=== PATIENT | male | born 1940 | race Two or more races ===

== ENCOUNTER 2017-02-10 16:16 | Emergency (ER) | payer MEDICAID, MEDICARE, OTHER ==
[~2017-02-10] VITALS: Ht 175.3 cm; Wt 56.2 kg
[~2017-02-10 16:16] MED LIST: ASPIRIN PO; ATOR40TA PO; DIVA250T4 PO; DONE5TAB3 PO; DUTA0.5C PO; MEMA10TA PO; METF850T2 PO; OXYB15TA3 PO; SITA100T PO; TRAZ-144 PO
[2017-02-10] MEDS ORDERED: ENAL10TA PO (16:50)
[2017-02-10] MEDS ORDERED: TAMS0.4C34 PO (16:57)
--- NOTE | 2017-02-10 17:25 | NUR ---
Pt resting with NAD noted, daughter at bedside.
--- NOTE | 2017-02-10 17:26 | NUR ---
Blood draw still pending.
--- NOTE | 2017-02-10 17:39 | NUR ---
Blood drawn by lab.
[2017-02-10 17:47] LABS: BASOPHILS % (AUTO) 0.3 % (0.0-2.0); EOSINOPHILS # (AUTO) 1.8 K/uL (0.0-0.7); EOSINOPHILS % (AUTO) 11.5 % (0.0-7.0); HEMATOCRIT 35.8 % (40-50); LYMPHOCYTES # (AUTO) 1.4 K/UL (0.8-4.8); LYMPHOCYTES % (AUTO) 8.8 % (20.5-51.5); MEAN CORPUSCULAR HEMOGLOBIN 31.7 UUG (27.0-31.0); MEAN CORPUSCULAR HGB CONC 34 g/dL (32.0-37.0); MEAN CORPUSCULAR VOLUME 94.2 FL (82.0-92.0); MONOCYTES # (AUTO) 0.9 K/UL (0.1-1.30); MONOCYTES % (AUTO) 5.9 % (0.0-11.0); NEUTROPHILS # (AUTO) 11.7 K/UL (1.8-8.9); NEUTROPHILS % (AUTO) 73.5 % (38.5-71.5); PLATELET COUNT (AUTO) 224 K/UL (150-450); RED CELL DISTRIBUTION WIDTH 14.5 % (11.5-14.5); WHITE BLOOD COUNT (AUTO) 15.8 K/UL (4.0-11.2)
[2017-02-10 17:54] LABS: CALCIUM 9.6 mg/dL (8.5-10.1); CARBON DIOXIDE 30 mmol/L (21-32); CHLORIDE 110 mmol/L (98-107); CREATININE 0.9 mg/dL (0.6-1.3); GLUCOSE 97 mg/dL (74-106); POTASSIUM 3.7 mmol/L (3.5-5.1); SODIUM SERUM 149 mmol/L (136-145); UREA NITROGEN, BLOOD 23 mg/dL (7-18)
[2017-02-10 17:56] LABS: *BLOOD, URINE NEGATIVE (NEGATIVE); *CLARITY,URINE CLEAR (CLEAR); *COLOR,URINE YELLOW (YELLOW); *KETONES,URINE 1+ (NEGATIVE); *PROTEIN,URINE TRACE (NEGATIVE); LEUKOCYTE ESTERASE ,URINE NEGATIVE (NEGATIVE); NITRITE, URINE NEGATIVE (NEGATIVE); UGLUCOSE NEGATIVE (NEGATIVE)
[2017-02-10 17:57] LABS: *BILIRUBIN,URIN 1+ (NEGATIVE)
[2017-02-10 17:59] LABS: ALANINE AMINOTRANSFERASE 24 U/L (16-63); ALBUMIN 3.2 g/dL (3.4-5.0); ALKALINE PHOSPHATASE 140 U/L (50-136); ASPARTATE AMINOTRANSFERASE 16 U/L (15-37); BILIRUBIN,DIRECT 0.1 mg/dL (0.0-0.2); BILIRUBIN,TOTAL 0.2 mg/dL (0.2-1.0); TOTAL PROTEIN, SERUM 6.4 g/dL (6.4-8.2)
[2017-02-10 18:00] LABS: ETHANOL < 3 MG/DL (0-0)
[2017-02-10 18:03] LABS: BACTERIA,URINE NONE SEEN /HPF (NONE SEEN); CALCIUM OXALATE CRYSTALS,UR MODERATE /HPF (NONE SEEN); SQUAMOUS EPITHELIAL CELL,UR FEW /HPF (NONE SEEN)
[2017-02-10 18:05] LABS: *AMPHETAMINE, URINE NEGATIVE (NEGATIVE); *BARBITURATE, URINE NEGATIVE (NEGATIVE); *CANNABINOID, URINE NEGATIVE (NEGATIVE); *COCCAINE, URINE NEGATIVE (NEGATIVE); *OPIATE, URINE NEGATIVE (NEGATIVE); *PHENCYCLIDINE SCREEN,URINE NEGATIVE (NEGATIVE)
[2017-02-10 18:07] LABS: THYROID STIMULATING HORMONE 0.684 mIU/mL (0.358-3.740)
--- NOTE | 2017-02-10 18:47 | NUR ---
Pt is resting in gurney and watching tv, per Dr Fournier pt is medically clear, left msg for Gustabo Ordoñez for psych eval.
--- NOTE | 2017-02-10 19:09 | NUR ---
Spoke with Gustabo Ordoñez, he will evaluate pateint, FAMILIA 30 min.
--- NOTE | 2017-02-10 20:24 | NUR ---
Gustabo Ordoñez here to eval Patient
--- NOTE | 2017-02-10 21:25 | NUR ---
randy does not meet criteria per Gustabo Ordoñez
--- NOTE | 2017-02-10 21:36 | NUR ---
Patient discharged to home in stable conditon with daughter taking patient home. Written and verbal after care instructions given. Patient/Daughter verbalizes understanding of instructions. Walked out of ER with steady gair
[2017-02-10 21:37] VITALS: BP 128/78
== END 2017-02-10 21:37 | disposition home or self-care (01) ==
LOC: ER 16:16
DX: F03.90 Unspecified dementia, unspecified severity, without behavioral disturbance, psychotic disturbance, mood disturbance, and anxiety (principal); I10 Essential (primary) hypertension; E11.9 Type 2 diabetes mellitus without complications; E78.5 Hyperlipidemia, unspecified; Z79.82 Long term (current) use of aspirin
CPT/HCPCS: 36415; 71010; 80307; 83605; 84443; 85025; 85730; 93005; A4663; G6040-TC

== ENCOUNTER 2018-09-06 17:59 | Emergency (ER) | payer MEDICARE, MEDICAID ==
[~2018-09-06] VITALS: Ht 175.3 cm; Wt 59.0 kg
[~2018-09-06 17:59] MED LIST changes: -DONE5TAB3 PO; +DONE5TAB7 PO; +ENAL10TA PO; +METF-441 PO; -METF850T2 PO; +TAMS0.4C34 PO; -TRAZ-144 PO; +TRAZ-182 PO
[2018-09-06] MEDS ORDERED: TDAP DIPH,PERTUSS,TET VAC/PF 0.5 ML DISP.SYRIN IM ONE ×2 (18:30→18:41)
[2018-09-06] MEDS ORDERED: LORA0.5T PO (18:41)
[2018-09-06] MEDS ORDERED: MIRA50TA PO (18:41)
[2018-09-06] MEDS ORDERED: FINA5TAB11 PO (18:41)
[2018-09-06] MEDS ORDERED: QUET25TA PO (18:41)
--- NOTE | 2018-09-06 18:47 | NUR ---
PATIENT WAS SEEN BY MD. DIAGNOSTIC TESTS IN PROCESS... PATIENT IS AWAKE AND ALERT IN NO DISTRESS.
[2018-09-06 19:03] LABS: BASOPHILS % (AUTO) 0.6 % (0.0-2.0); EOSINOPHILS # (AUTO) 0.8 K/uL (0.0-0.7); EOSINOPHILS % (AUTO) 10.6 % (0.0-7.0); HEMOGLOBIN 9.7 g/dL (12.5-16.3); LYMPHOCYTES # (AUTO) 1.5 K/uL (20.0-40.0); LYMPHOCYTES % (AUTO) 19.9 % (20.5-51.5); MEAN CORPUSCULAR HEMOGLOBIN 32.3 uug (23.8-33.4); MEAN CORPUSCULAR HGB CONC 35 g/dL (32.5-36.3); MEAN CORPUSCULAR VOLUME 92.8 fL (73.0-96.2); MONOCYTES # (AUTO) 0.6 K/uL (2.0-10.0); MONOCYTES % (AUTO) 7.3 % (0.0-11.0); NEUTROPHILS # (AUTO) 4.8 K/uL (1.8-8.9); NEUTROPHILS % (AUTO) 61.6 % (38.5-71.5); PLATELET COUNT (AUTO) 169 K/uL (152-348); RED BLOOD CELL COUNT(AUTO) 3.01 MIL/uL (4.06-5.63); WHITE BLOOD COUNT (AUTO) 7.7 K/uL (3.6-10.2)
[2018-09-06 19:12] LABS: CARBON DIOXIDE 31 mmol/L (21-32); CHLORIDE 107 mmol/L (98-107); CREATININE 1.1 mg/dL (0.6-1.3); GLUCOSE 89 mg/dL (74-106); POTASSIUM 4.5 mmol/L (3.5-5.1); UREA NITROGEN, BLOOD 22 mg/dL (7-18)
--- NOTE | 2018-09-06 20:59 | NUR ---
Patient discharged to home in stable conditon. Written and verbal after care instructions given. Patient, and his daughter, verbalize understanding of instructions.
== END 2018-09-06 21:01 | disposition home or self-care (01) ==
LOC: ER 18:02
DX: S60.511A Abrasion of right hand, initial encounter (principal); S20.419A Abrasion of unspecified back wall of thorax, initial encounter; S09.90XA Unspecified injury of head, initial encounter; M54.2 Cervicalgia; R07.9 Chest pain, unspecified; I10 Essential (primary) hypertension; E78.5 Hyperlipidemia, unspecified; E11.9 Type 2 diabetes mellitus without complications; Z79.82 Long term (current) use of aspirin; Z79.84 Long term (current) use of oral hypoglycemic drugs; Z79.899 Other long term (current) drug therapy; W10.0XXA Fall (on)(from) escalator, initial encounter; Y93.89 Activity, other specified; Y92.89 Other specified places as the place of occurrence of the external cause; Y99.8 Other external cause status
CPT/HCPCS: 36415; 70030-TC; 70450; 71045; 72125; 72170; 80164; 85025; 90715; 93005; A4663

== ENCOUNTER 2019-04-05 11:05 | Inpatient (IN) | payer MEDICARE, MEDICAID ==
[~2019-04-05] VITALS: Ht 175.3 cm; Wt 63.5 kg
[~2019-04-05 11:05] MED LIST changes: -ASPIRIN PO; -DUTA0.5C PO; +FINA5TAB11 PO; +LORA0.5T PO; +MIRA50TA PO; -OXYB15TA3 PO; +QUET25TA PO; -TAMS0.4C34 PO; -TRAZ-182 PO
[2019-04-05] MEDS ORDERED: CLOP75TA33 PO (11:16)
--- NOTE | 2019-04-05 11:20 | NUR ---
PT IS IN THE ROOM #2A. DR STEIN EVALUATED THE PT.
[2019-04-05] MEDS ORDERED: HYDROCODONE/APAP 5-325MG TABLET PO ONE (11:30)
[2019-04-05] MEDS ORDERED: HYDROCODONE/APAP 5-325MG TABLET ONE (11:32)
[2019-04-05 11:48] LABS: BASOPHILS % (AUTO) 0.4 % (0.0-2.0); EOSINOPHILS # (AUTO) 2.1 K/uL (0.0-0.7); EOSINOPHILS % (AUTO) 15.5 % (0.0-7.0); HEMATOCRIT 32.1 % (36.7-47.1); HEMOGLOBIN 10.7 g/dL (12.5-16.3); LYMPHOCYTES # (AUTO) 1.2 K/uL (20.0-40.0); LYMPHOCYTES % (AUTO) 8.7 % (20.5-51.5); MEAN CORPUSCULAR HEMOGLOBIN 30.7 uug (23.8-33.4); MEAN CORPUSCULAR HGB CONC 33 g/dL (32.5-36.3); MEAN CORPUSCULAR VOLUME 92.3 fL (73.0-96.2); MONOCYTES # (AUTO) 0.6 K/uL (2.0-10.0); MONOCYTES % (AUTO) 4.4 % (0.0-11.0); NEUTROPHILS # (AUTO) 9.5 K/uL (1.8-8.9); PLATELET COUNT (AUTO) 290 K/uL (152-348); RED BLOOD CELL COUNT(AUTO) 3.48 MIL/uL (4.06-5.63); WHITE BLOOD COUNT (AUTO) 13.4 K/uL (3.6-10.2)
[2019-04-05 11:57] LABS: CARBON DIOXIDE 25 mmol/L (21-32); CHLORIDE 107 mmol/L (98-107); CREATININE 1.4 mg/dL (0.6-1.3); GLUCOSE 174 mg/dL (74-106); POTASSIUM 3.8 mmol/L (3.5-5.1); UREA NITROGEN, BLOOD 27 mg/dL (7-18)
[2019-04-05 12:02] LABS: ALANINE AMINOTRANSFERASE 24 U/L (16-63); ALKALINE PHOSPHATASE 215 U/L (50-136); ASPARTATE AMINOTRANSFERASE 22 U/L (15-37); BILIRUBIN,DIRECT 0.1 mg/dL (0.0-0.2); BILIRUBIN,TOTAL 0.3 mg/dL (0.2-1.0); TOTAL PROTEIN, SERUM 6.4 g/dL (6.4-8.2)
[2019-04-05 12:05] LABS: ACETAMINOPHEN < 2.0 ug/mL (10-30)
[2019-04-05 12:10] LABS: THYROID STIMULATING HORMONE 0.928 mIU/mL (0.358-3.740)
[2019-04-05 12:26] LABS: ETHANOL 5 MG/DL (0-0)
--- NOTE | 2019-04-05 12:56 | NUR ---
PT IS RESTING IN BED QUIETLY. NO S/S OF DISTRESS. CONTINUE TO MONITOR THE PT.
[2019-04-05 12:58] LABS: *BILIRUBIN,URIN NEGATIVE (NEGATIVE); *BLOOD, URINE NEGATIVE (NEGATIVE); *CLARITY,URINE CLEAR (CLEAR); *COLOR,URINE YELLOW (YELLOW); *KETONES,URINE TRACE (NEGATIVE); *UROBILINOGEN,URINE 0.2 E.U./dl (NORMAL); LEUKOCYTE ESTERASE ,URINE NEGATIVE (NEGATIVE); NITRITE, URINE NEGATIVE (NEGATIVE); PH,URINE 6.5 (5.0-8.0); UGLUCOSE NEGATIVE (NEGATIVE)
[2019-04-05 13:03] LABS: *AMPHETAMINE, URINE NEGATIVE (NEGATIVE); *BARBITURATE, URINE NEGATIVE (NEGATIVE); *CANNABINOID, URINE NEGATIVE (NEGATIVE); *COCCAINE, URINE NEGATIVE (NEGATIVE); *OPIATE, URINE NEGATIVE (NEGATIVE); *PHENCYCLIDINE SCREEN,URINE NEGATIVE (NEGATIVE)
--- NOTE | 2019-04-05 13:06 | NUR ---
Per pt to be admitted to tele, tele floor called for bed assignment.
[2019-04-05 13:12] LABS: CALCIUM OXALATE CRYSTALS,UR MODERATE /HPF (NONE SEEN); SQUAMOUS EPITHELIAL CELL,UR FEW /HPF (NONE SEEN)
[2019-04-05 13:13] LABS: BACTERIA,URINE FEW /HPF (NONE SEEN); RBC,URINE 0-3 /HPF (0-3)
[2019-04-05 13:14] LABS: URINE AMORPHOUS URATE FEW /HPF
--- NOTE | 2019-04-05 14:00 | NUR ---
RECEIVED PATIENT FROM ER AND ADMITTED IN TELEMETRY, WITH DX OF AMS AND VERTEBRAL FRACTURE, NO SOB AND NO C/O PAIN NOTED AT THIS TIME. IV INTACT, PATIENT ALERT AND ORIENTED X1 CONFUSED, PATIENT AMBULATORY. BELONGINGS ACCOUNTED FOR , AWARE PATIENT ARRIVED. WILL CONTINUE TO MONITOR
--- NOTE | 2019-04-05 14:09 | NUR ---
PT WAS TRANSFERED TO ROOM #314. REPORT WAS GIVEN TO STEAM CLOTHES PRESS OPERATOR.
[2019-04-05 14:11] VITALS: BP 149/79
[2019-04-05] MEDS ORDERED: ZOLPIDEM 5 MG TABLET PO PRN (15:45)
[2019-04-05] MEDS ORDERED: Z GUARD REMEDY PASTE 57 GM TUBE TOP PRN (15:45)
[2019-04-05] MEDS ORDERED: ACETAMINOPHEN 325 MG TABLET PO PRN (15:45)
[2019-04-05] MEDS ORDERED: ONDANSETRON 4 MG/2 ML VIAL IV PRN (15:45)
[2019-04-05] MEDS ORDERED: MAGNESIUM HYDROXIDE 30 ML LIQUID UDC PO PRN (15:45)
--- NOTE | 2019-04-05 16:50 | NUR ---
CALLED JOSE TSAI REGARDING PATIENT NEEDING 1:1 SITTER DUE TO PATIENT VERY CONFUSED, AGITATED TUGGING ON HIS IV AND GETTING OUT OF BED. ALSO , PER DAUGHTER REQUEST PATIENT TO BE SEEN AND A PSYCH CONSULT BY DR. BAILEY. MADE AWARE WITH NEW ORDER OF 1:1 SITTER AND PHYSICIAN CONSULT BY DR. BAILEY.
[2019-04-05] MEDS ORDERED: DIVALPROEX 250 MG TABLET.DR PO SCH (17:00)
--- NOTE | 2019-04-05 17:00 | NUR ---
LEO MADE AWARE FOR PHYSICIAN CONSULT FOR THE PATIENT.
[2019-04-05] MEDS: MEMANTINE HCL 10 MG TABLET PO SCH (17:46)
[2019-04-05] MEDS: IV NS 1000 ML 1,000 ML IV PRN (17:47)
[2019-04-05] MEDS ORDERED: METFORMIN HCL 850 MG TABLET PO SCH (18:00)
[2019-04-05] MEDS: DIVALPROEX 125 MG TABLET.DR PO SCH (18:21)
--- NOTE | 2019-04-05 18:51 | NUR ---
PATIENT IS STILL AGITATED , TRYING TO PULL HIS IV AND GETTING OUT OF BED WITHOUT ASSISTANCE, NO SOB AND NO C/O PAIN NOTED AT THIS TIME. WILL CONTINUE TO MONITOR AND CONTINUE TREATMENT PLAN.
[2019-04-05] MEDS: LORAZEPAM 0.5 MG TABLET PO PRN (18:58)
--- NOTE | 2019-04-05 19:40 | NUR ---
Received patient awake and alert in bed, 1:1 sitter at bedside for safety. Patient is A/Ox1. No signs of acute distress. No complaints of pain or SOB, patient on room air saturating at 98%. IVF running on the left forearm, no s/s of infiltration. Vitals WNL. Skin tear on the right arm with dressing clean and intact. Safety measures initiated. Bed is low and locked, call light within reach. Will continue to monitor.
[2019-04-05 20:03] VITALS: BP 123/68
[2019-04-05] MEDS: DONEPEZIL 5 MG TABLET PO SCH (20:18)
[2019-04-05] MEDS: ATORVASTATIN 40 MG TABLET PO SCH (20:18)
[2019-04-05] MEDS: HYDROCODONE/APAP 5-325MG TABLET PO PRN (23:14)
[2019-04-06] MEDS ORDERED: QUETIAPINE FUMARATE 25 MG TABLET PO SCH ×2 (00:15→09:00)
--- NOTE | 2019-04-06 00:30 | NUR ---
Patient was very confused and agitated, getting out of bed. Called on-call doctor and received new orders. Will continue to monitor.
[2019-04-06 00:55] VITALS: BP 149/83
[2019-04-06 04:43] VITALS: BP 112/66
--- NOTE | 2019-04-06 05:53 | NUR ---
Patient slept well after new order of Seroquel 12.5mg x1 was given. 1:1 sitter at bedside. No signs of acute distress noted. Complained of pain with PRN pain medication given and was effective. No complaints of SOB. All medications given as ordered and tolerated well. Vitals WNL. Safety measures given.
[2019-04-06] MEDS: IV NS 1000 ML 1,000 ML IV PRN (06:12)
[2019-04-06 06:52] LABS: BASOPHILS % (AUTO) 0.2 % (0.0-2.0); EOSINOPHILS # (AUTO) 2.7 K/uL (0.0-0.7); EOSINOPHILS % (AUTO) 24.6 % (0.0-7.0); HEMATOCRIT 29.9 % (36.7-47.1); HEMOGLOBIN 9.9 g/dL (12.5-16.3); LYMPHOCYTES % (AUTO) 17.8 % (20.5-51.5); MEAN CORPUSCULAR HEMOGLOBIN 30.7 uug (23.8-33.4); MEAN CORPUSCULAR HGB CONC 33 g/dL (32.5-36.3); MEAN CORPUSCULAR VOLUME 92.2 fL (73.0-96.2); MONOCYTES # (AUTO) 0.6 K/uL (2.0-10.0); MONOCYTES % (AUTO) 5.5 % (0.0-11.0); NEUTROPHILS # (AUTO) 5.8 K/uL (1.8-8.9); NEUTROPHILS % (AUTO) 51.9 % (38.5-71.5); PLATELET COUNT (AUTO) 280 K/uL (152-348); RED BLOOD CELL COUNT(AUTO) 3.24 MIL/uL (4.06-5.63); WHITE BLOOD COUNT (AUTO) 11.1 K/uL (3.6-10.2)
[2019-04-06 06:59] LABS: CARBON DIOXIDE 31 mmol/L (21-32); CHLORIDE 108 mmol/L (98-107); CHOLESTEROL 87 mg/dL (<200); GLUCOSE 106 mg/dL (74-106); HDL CHOLESTEROL 53 mg/dL (40-60); MAGNESIUM 1.5 mg/dL (1.8-2.4); PHOSPHOROUS 3.1 mg/dL (2.5-4.9); POTASSIUM 3.6 mmol/L (3.5-5.1); TRIGLYCERIDES 38 MG/DL (30-150); UREA NITROGEN, BLOOD 17 mg/dL (7-18)
[2019-04-06 08:00] VITALS: BP 141/56
[2019-04-06] MEDS: DIVALPROEX 125 MG TABLET.DR PO SCH ×3 (08:43→20:20)
[2019-04-06] MEDS: MEMANTINE HCL 10 MG TABLET PO SCH ×2 (08:44→16:44)
[2019-04-06] MEDS: CLOPIDOGREL 75 MG TABLET PO SCH (08:44)
[2019-04-06] MEDS: ENALAPRIL 10 MG TABLET PO SCH (08:44)
[2019-04-06] MEDS: FINASTERIDE 5 MG TABLET PO SCH (08:44)
[2019-04-06] MEDS: LINAGLIPTIN 5 MG TABLET PO SCH (08:44)
[2019-04-06] MEDS ORDERED: Medication Not On Formulary EA (Mirabegron (Myrbetriq) 50 MG) PO SCH (09:00)
[2019-04-06] MEDS ORDERED: Medication Not On Formulary EA (Sitagliptin Phosphate (Januvia) 100 MG) PO SCH (09:00)
--- NOTE | 2019-04-06 10:10 | NUR ---
At this time patient become very restless and agitated, forcefully removed his iv with bleeding all over the floor attempting to leave room and leave hospital AMA patient severely agitated, confused and while assisted to use facility some how throw urine to EVS staff, and sitter who remains at bedside. Medicated as ordered, will continue to monitor.
[2019-04-06 10:14] LABS: EOSINOPHILS % (MANUAL) 18 % (0-8); LYMPHOCYTES % (MANUAL) 26 % (20-40); MONOCYTES % (MANUAL) 3 % (2-10); NEUTROPHILS % (MANUAL) 53 % (42-75)
[2019-04-06] MEDS: LORAZEPAM 0.5 MG TABLET PO PRN (10:15)
[2019-04-06] MEDS ORDERED: MAGNESIUM SULFATE/D5W 100 ML IV SCH (10:45)
[2019-04-06] MEDS ORDERED: HALOPERIDOL LACTATE 5 MG/1 ML VIAL IM ONE (10:45)
--- NOTE | 2019-04-06 10:55 | NUR ---
Patient been walk around the whole-way by sitter refusing to go back to bed and rest, will continue to monitor. Addendum: 04/06/19 at 1828 by AMANDA SINGH RN Patient attempting to get into other patient's room.
[2019-04-06 12:00] VITALS: BP 117/73
--- NOTE | 2019-04-06 12:00 | NUR ---
At this time Dr. Mckee rounding and witness pt's aggressive behavior: while pt. sitting in the sean-chair banging his head against the wall and attempting to scratch and bite 1:1 sitter who remains at bedside. As order by Md. Mckee orders for Mittens received and implemented.
[2019-04-06] MEDS ORDERED: MAGNESIUM OXIDE 400 MG TABLET PO ONE (12:45)
--- NOTE | 2019-04-06 13:00 | NUR ---
Spoke with Katherine Duarte and informed of pt's mental status. Obed. ok if MRI order is not done today or done until pt relaxed enough for the procedure.
[2019-04-06] MEDS: QUETIAPINE FUMARATE 25 MG TABLET PO PRN (13:17)
--- NOTE | 2019-04-06 13:30 | NUR ---
Despite all medications administered patient remains restless and agitated at this moment in the sean-chair screaming and attempting to get off the chair. forcefully removed telemetry box and attempting to use it to hit 1:1 sitter at bedside.
[2019-04-06] MEDS ORDERED: LORAZEPAM 1 MG TABLET PO PRN (14:00)
[2019-04-06 15:00] VITALS: BP 143/88
--- NOTE | 2019-04-06 18:30 | NUR ---
Patient seen by Psychiatrist Dr. Olsen. Orders for Crisis team evaluation received and implemented. Call send out to Gustabo Ordoñez to see patient. follow up will be endorse to incoming shift.
--- NOTE | 2019-04-06 18:45 | NUR ---
Spoke with [facility] crisis team to see patient per DR Olsen request.
--- NOTE | 2019-04-06 19:35 | NUR ---
PATIENT AWAKE BUT FORGETFUL, NO SOB NO CHEST PAIN, TELE MONITOR SINUS RHYTHM. PATIENT ON 1;1 SITTER FOR SAFETY, RISK FOR FALL AND INJURY. COMPLAIN OF NECK PAIN WILL MEDICATE FOR PAIN. PATIENT RESTLESS IN BED TRIED TO CLIMB OUT OF BED. CONT TO MONITOR.
[2019-04-06 20:10] VITALS: BP 122/66
[2019-04-06] MEDS: HYDROCODONE/APAP 5-325MG TABLET PO PRN (20:17)
[2019-04-06] MEDS: DONEPEZIL 5 MG TABLET PO SCH (20:18)
[2019-04-06] MEDS: ATORVASTATIN 40 MG TABLET PO SCH (20:18)
[2019-04-06] MEDS: QUETIAPINE FUMARATE 25 MG TABLET PO SCH (20:21)
--- NOTE | 2019-04-06 20:50 | NUR ---
ISELA VILLAVICENCIO CAME AND EVALUATE THE PATIENT. PATIENT WAS PUT ON 72 HR BED HOLD FOR GRAVELY DISABLED.
[2019-04-07] VITALS: BP 145/70
[2019-04-07 03:57] VITALS: BP 127/76
[2019-04-07 06:03] LABS: CARBON DIOXIDE 29 mmol/L (21-32); CHLORIDE 110 mmol/L (98-107); CREATININE 0.9 mg/dL (0.6-1.3); GLUCOSE 90 mg/dL (74-106); MAGNESIUM 1.7 mg/dL (1.8-2.4); UREA NITROGEN, BLOOD 12 mg/dL (7-18)
--- NOTE | 2019-04-07 06:57 | NUR ---
PATIENT SLEPT MOST PART OF THE NIGHT, SLEPT FOR 10 HRS. CONT ON 1;1 SITTER FOR SAFETY,KEPT CLEAN AND DRY. PATIENT HAS NO COMPLAIN OF PAIN AT THIS TIME. PATIENT STILL HAS EPISODES OF ANXIETY MB TRYING TO CLIMB OOB, RISK FOR FALL. CONT TO MONITOR.
--- NOTE | 2019-04-07 07:30 | NUR ---
PATIENT ON 1;1 SITTER FOR SAFETY, PATIENT HAS NO COMPLAIN OF PAIN AT THIS TIME. PATIENT IS COOPERATIVE, RISK FOR FALL. CONT TO MONITOR. SAFETY REINFORCED
[2019-04-07] MEDS: MEMANTINE HCL 10 MG TABLET PO SCH ×2 (08:46→18:06)
[2019-04-07] MEDS: QUETIAPINE FUMARATE 25 MG TABLET PO SCH ×3 (08:46→20:38)
[2019-04-07] MEDS: FINASTERIDE 5 MG TABLET PO SCH (08:47)
[2019-04-07] MEDS: CLOPIDOGREL 75 MG TABLET PO SCH (08:47)
[2019-04-07] MEDS: LINAGLIPTIN 5 MG TABLET PO SCH (08:48)
[2019-04-07] MEDS: DIVALPROEX 125 MG TABLET.DR PO SCH ×3 (08:48→20:38)
[2019-04-07] MEDS: ENALAPRIL 10 MG TABLET PO SCH (08:51)
--- NOTE | 2019-04-07 10:00 | NUR ---
ANALYST BUSINESS ANALYSIS HOMER CALLED NEUROLOGIST MERRICK [phone], THAT NEEDED TO SEE THE PATIENT TODAY, TO VERIFY IF THEY ARE COMING TODAY FOR EVALUATION AND IF THEY ARE AWARE OF A REFERRAL
[2019-04-07] MEDS ORDERED: LORAZEPAM 2 MG/1 ML VIAL IV PRN (10:15)
[2019-04-07 10:30] VITALS: BP 145/85
--- NOTE | 2019-04-07 11:00 | NUR ---
AX SURVEY WORKER HOMER WALKED WITH PATIENT AROUND THE UNIT
[2019-04-07] MEDS: HYDROCODONE/APAP 5-325MG TABLET PO PRN (11:38)
[2019-04-07] MEDS ORDERED: MAGNESIUM OXIDE 400 MG TABLET PO ONE (12:15)
[2019-04-07] MEDS ORDERED: MAGNESIUM SULFATE/D5W 100 ML IV SCH (12:15)
--- NOTE | 2019-04-07 12:50 | NUR ---
PATIENT GETS IRRITABLE AND DOESN'T WANT TO LISTEN TO REORIENTATION OR DISTRACTION COMMANDS, HE RESPONDS WITH WORD SALAD AND ESCALATES IN HIS VOICE
--- NOTE | 2019-04-07 13:00 | NUR ---
Patient is getting agitated and hard to reorient Gave scheduled dose of Seroquel 12.5 mg as routine
--- NOTE | 2019-04-07 13:30 | NUR ---
Confirmed with Belt Loop Cutter and Director Ok victor m Pradhan per policy.
--- NOTE | 2019-04-07 13:50 | NUR ---
Patient is getting more combative and irritable , call Raúl for order he said to give Seroquel 25 mg prn as ordered
[2019-04-07] MEDS: QUETIAPINE FUMARATE 25 MG TABLET PO PRN ×2 (13:55→22:59)
[2019-04-07] MEDS ORDERED: ZIPRASIDONE MESYLATE 20 MG VIAL IM ONE (14:30)
--- NOTE | 2019-04-07 15:00 | NUR ---
Medications were not effective, patient is combative and agressive, hits nurses and gets naked on the floor. doesn't follow reorientation or any other commands. Put patient on restrains and gave shot as ordered
[2019-04-07 16:00] VITALS: BP 122/77
[2019-04-07 20:00] VITALS: BP 135/68
--- NOTE | 2019-04-07 20:00 | NUR ---
Pt. resting in bed with sitter at bedside for safety. IV in left forearm 18 gauge, patent, intact, hep lock and wrapped in kerlix. Pt. is calm and pleasant will continue to monitor. Safety measures in place
[2019-04-07 20:32] VITALS: BP 135/68
[2019-04-07] MEDS: ATORVASTATIN 40 MG TABLET PO SCH (20:38)
[2019-04-07] MEDS: DONEPEZIL 5 MG TABLET PO SCH (20:38)
--- NOTE | 2019-04-07 23:30 | NUR ---
report from AM nurse psych doctor david is okay with pt. to walk around unit if agitated. Pt. is walking with sitter around unit. Once done with walking PRN Seroquel and Ambien was given for agitation will continue to monitor.
[2019-04-08] MEDS: HYDROCODONE/APAP 5-325MG TABLET PO PRN (00:02)
[2019-04-08 04:00] VITALS: BP 128/65
[2019-04-08 06:50] LABS: BASOPHILS % (AUTO) 0.4 % (0.0-2.0); EOSINOPHILS # (AUTO) 2.1 K/uL (0.0-0.7); EOSINOPHILS % (AUTO) 20.4 % (0.0-7.0); HEMATOCRIT 34.6 % (36.7-47.1); HEMOGLOBIN 11.9 g/dL (12.5-16.3); LYMPHOCYTES # (AUTO) 2.5 K/uL (20.0-40.0); LYMPHOCYTES % (AUTO) 24.4 % (20.5-51.5); MEAN CORPUSCULAR HEMOGLOBIN 31.5 uug (23.8-33.4); MEAN CORPUSCULAR HGB CONC 34 g/dL (32.5-36.3); MEAN CORPUSCULAR VOLUME 91.8 fL (73.0-96.2); MONOCYTES # (AUTO) 0.6 K/uL (2.0-10.0); MONOCYTES % (AUTO) 5.8 % (0.0-11.0); PLATELET COUNT (AUTO) 320 K/uL (152-348); RED BLOOD CELL COUNT(AUTO) 3.77 MIL/uL (4.06-5.63); WHITE BLOOD COUNT (AUTO) 10.3 K/uL (3.6-10.2)
--- NOTE | 2019-04-08 06:51 | NUR ---
Pt. resting in bed with sitter at bedside. Pt. has IV in left forearm 18 gauge intact, patent, hep lock. Pt. slept intermittently throughout night. Safety measures in place. Comfort measures provided. Will endorse to AM nurse.
[2019-04-08 06:59] LABS: CARBON DIOXIDE 30 mmol/L (21-32); CHLORIDE 110 mmol/L (98-107); GLUCOSE 97 mg/dL (74-106); MAGNESIUM 1.9 mg/dL (1.8-2.4); PHOSPHOROUS 2.9 mg/dL (2.5-4.9); UREA NITROGEN, BLOOD 13 mg/dL (7-18)
[2019-04-08] MEDS ORDERED: LORAZEPAM 1 MG TABLET PO ONE ×2 (08:45→14:45)
[2019-04-08] MEDS: MEMANTINE HCL 10 MG TABLET PO SCH ×2 (08:57→16:49)
[2019-04-08] MEDS: DIVALPROEX 125 MG TABLET.DR PO SCH ×3 (08:57→21:30)
[2019-04-08] MEDS: FINASTERIDE 5 MG TABLET PO SCH (08:58)
[2019-04-08] MEDS: LINAGLIPTIN 5 MG TABLET PO SCH (08:58)
[2019-04-08] MEDS: QUETIAPINE FUMARATE 25 MG TABLET PO SCH ×3 (08:58→21:18)
[2019-04-08] MEDS: CLOPIDOGREL 75 MG TABLET PO SCH (08:59)
[2019-04-08] MEDS: ENALAPRIL 10 MG TABLET PO SCH (08:59)
[2019-04-08 11:11] VITALS: BP 136/76
[2019-04-08 14:32] VITALS: BP 132/81
--- NOTE | 2019-04-08 15:02 | NUR ---
Patient left via ambulance to [facility] for MRI with 1;1 sitter that went with patient and the ambulance staff. Ativan 1mg po given prior to transport.
--- NOTE | 2019-04-08 18:53 | NUR ---
Patient anxious with constant moving in out of bed to chair; back brace on while ambulating ; vital signs with in normal limits. Call light and safety devices in place. Sitter at bedside.
[2019-04-08 20:00] VITALS: BP 127/76
[2019-04-08] MEDS: DONEPEZIL 5 MG TABLET PO SCH (21:30)
[2019-04-08] MEDS: ATORVASTATIN 40 MG TABLET PO SCH (21:31)
[2019-04-09] MEDS: HYDROCODONE/APAP 5-325MG TABLET PO PRN ×2 (01:02→15:14)
[2019-04-09 06:23] VITALS: BP 148/86
--- NOTE | 2019-04-09 06:38 | NUR ---
PATIENT RESTED WELL IN BETWEEN CARE; SITTER AT BEDSIDE; NORCO GIVEN FOR PAIN X1 AND PT SLEPT; SAFETY MAINTAINED; ASSISTED WITH HYGIENE NEEDS
--- NOTE | 2019-04-09 07:18 | NUR ---
Patient calm and comfortable sitting up in sean chair with back brace ; with no signs of distress; patient call light with in reach all safety devices in place.
[2019-04-09 08:23] VITALS: BP 149/77
[2019-04-09] MEDS: FINASTERIDE 5 MG TABLET PO SCH (08:43)
[2019-04-09] MEDS: LINAGLIPTIN 5 MG TABLET PO SCH (08:44)
[2019-04-09] MEDS: MEMANTINE HCL 10 MG TABLET PO SCH (08:44)
[2019-04-09] MEDS: DIVALPROEX 125 MG TABLET.DR PO SCH ×2 (08:44→13:13)
[2019-04-09] MEDS: QUETIAPINE FUMARATE 25 MG TABLET PO SCH ×2 (08:45→13:13)
[2019-04-09] MEDS: CLOPIDOGREL 75 MG TABLET PO SCH (08:45)
[2019-04-09] MEDS: ENALAPRIL 10 MG TABLET PO SCH (08:49)
[2019-04-09 10:28] VITALS: BP 127/53
[2019-04-09] MEDS ORDERED: LINA5TAB PO (11:57)
[2019-04-09] MEDS ORDERED: QUET25TA PO ×4 (11:57)
[2019-04-09 14:26] VITALS: BP 123/70
[2019-04-09] MEDS: QUETIAPINE FUMARATE 25 MG TABLET PO PRN (15:15)
--- NOTE | 2019-04-09 18:15 | NUR ---
Patient picked up by karla taken to [facility] ,all patient belongings and discharge instructions given to Emt . Patient in stable condition with stable vital signs. Patient midly confused ; guatemalan speaking only.
== END 2019-04-09 18:10 | DRG 551 ==
LOC: ER 11:05 → TELE3 13:51 → MEDSURG3 04-07 14:39
PROVIDERS: ADMIT Hospitalist; ATTEND Hospitalist
DX: S32.029A Unspecified fracture of second lumbar vertebra, initial encounter for closed fracture (principal); N17.0 Acute kidney failure with tubular necrosis; F02.81 Dementia in other diseases classified elsewhere, unspecified severity, with behavioral disturbance; E44.1 Mild protein-calorie malnutrition; G93.40 Encephalopathy, unspecified; W17.89XA Other fall from one level to another, initial encounter; Y93.89 Activity, other specified; Y92.89 Other specified places as the place of occurrence of the external cause; G30.9 Alzheimer's disease, unspecified; Z91.83 Wandering in diseases classified elsewhere; D63.8 Anemia in other chronic diseases classified elsewhere; E78.00 Pure hypercholesterolemia, unspecified; E78.5 Hyperlipidemia, unspecified; D72.829 Elevated white blood cell count, unspecified; F39 Unspecified mood [affective] disorder; E11.9 Type 2 diabetes mellitus without complications; M48.02 Spinal stenosis, cervical region; M13.88 Other specified arthritis, other site; F10.11 Alcohol abuse, in remission; Y90.0 Blood alcohol level of less than 20 mg/100 ml; I10 Essential (primary) hypertension; M77.9 Enthesopathy, unspecified; N40.0 Benign prostatic hyperplasia without lower urinary tract symptoms; M50.223 Other cervical disc displacement at C6-C7 level; Z79.899 Other long term (current) drug therapy; Z79.02 Long term (current) use of antithrombotics/antiplatelets; Z79.84 Long term (current) use of oral hypoglycemic drugs; Z86.73 Personal history of transient ischemic attack (TIA), and cerebral infarction without residual deficits
CPT/HCPCS: 36415; 70450; 71045; 72125; 72131; 72148; 80307; 83735; 84100; 84443; 85025; 85730; 87086; 93005; 97116; 97530; A4663; G0378; G0480; G0480-TC; J1630; J2060; J3475; J3486; J7030

== ENCOUNTER 2019-09-05 15:49 | Inpatient (IN) | payer MEDICARE, MEDICAID ==
[~2019-09-05] VITALS: Ht 175.3 cm; Wt 53.5 kg
[~2019-09-05 15:49] MED LIST changes: +CLOP75TA33 PO; +LINA5TAB PO; -LORA0.5T PO; -METF-441 PO
[2019-09-05 16:26] LABS: BASOPHILS % (AUTO) 0.4 % (0.0-2.0); EOSINOPHILS # (AUTO) 0.2 K/uL (0.0-0.7); EOSINOPHILS % (AUTO) 2.2 % (0.0-7.0); HEMATOCRIT 30.9 % (36.7-47.1); HEMOGLOBIN 10.2 g/dL (12.5-16.3); LYMPHOCYTES % (AUTO) 10.9 % (20.5-51.5); MEAN CORPUSCULAR HEMOGLOBIN 31.9 uug (23.8-33.4); MEAN CORPUSCULAR HGB CONC 33 g/dL (32.5-36.3); MEAN CORPUSCULAR VOLUME 97.2 fL (73.0-96.2); MONOCYTES # (AUTO) 0.7 K/uL (2.0-10.0); MONOCYTES % (AUTO) 7.5 % (0.0-11.0); NEUTROPHILS # (AUTO) 7.3 K/uL (1.8-8.9); PLATELET COUNT (AUTO) 149 K/uL (152-348); RED BLOOD CELL COUNT(AUTO) 3.19 MIL/uL (4.06-5.63); WHITE BLOOD COUNT (AUTO) 9.2 K/uL (3.6-10.2)
[2019-09-05 16:33] LABS: CREATININE 1.1 mg/dL (0.6-1.3); POTASSIUM 4.3 mmol/L (3.5-5.1)
[2019-09-05] MEDS ORDERED: PROPOFOL 200 MG/20 ML BOTTLE IV ONE (16:45)
[2019-09-05] MEDS ORDERED: POTA10CA43 PO (16:45)
[2019-09-05] MEDS ORDERED: BENZ0.5T43 PO (16:45)
[2019-09-05] MEDS ORDERED: FERR325T23 PO (16:45)
[2019-09-05] MEDS ORDERED: ZOLP10TA6 PO (16:45)
[2019-09-05] MEDS ORDERED: DONE10TA44 PO (16:54)
[2019-09-05] MEDS ORDERED: ERGO500040 PO (16:54)
[2019-09-05] MEDS ORDERED: PROPOFOL 200 MG/20 ML BOTTLE ONE (16:56)
--- NOTE | 2019-09-05 17:10 | NUR ---
Moderate sedation for closed reduction of left elbow dislocation started. Please see paper records for details.
--- NOTE | 2019-09-05 17:56 | NUR ---
EKG being done@this time. Patient's daughter left ER & said to call her for anything (e.g. greens picker patient, disposition, etc).
--- NOTE | 2019-09-05 18:29 | NUR ---
Filomena-anal care done. New gown & diaper on. 1:1 observation initiated 2/2 patient is baseline confuse, does not follow simple commands and high risk for fall & elopement.
[2019-09-05 18:43] LABS: *BILIRUBIN,URIN NEGATIVE (NEGATIVE); *BLOOD, URINE 2+ (NEGATIVE); *CLARITY,URINE CLEAR (CLEAR); *COLOR,URINE YELLOW (YELLOW); *KETONES,URINE 1+ (NEGATIVE); *UROBILINOGEN,URINE 0.2 E.U./dl (NORMAL); LEUKOCYTE ESTERASE ,URINE TRACE (NEGATIVE); NITRITE, URINE NEGATIVE (NEGATIVE); PH,URINE 5.5 (5.0-8.0); UGLUCOSE NEGATIVE (NEGATIVE)
[2019-09-05 18:44] LABS: BACTERIA,URINE NONE SEEN /HPF (NONE SEEN); SQUAMOUS EPITHELIAL CELL,UR FEW /HPF (NONE SEEN)
[2019-09-05 18:51] LABS: BILIRUBIN,DIRECT 0.1 mg/dL (0.0-0.2); BILIRUBIN,TOTAL 0.3 mg/dL (0.2-1.0)
[2019-09-05] MEDS ORDERED: CEFTRIAXONE 1 G VIAL ONE (18:58)
[2019-09-05] MEDS ORDERED: IV NORMAL SALINE 1000 ML BAG IV ONE (19:00)
[2019-09-05] MEDS ORDERED: CEFTRIAXONE 2 G in IV DEXTROSE 5% 100 ML IV ONE (19:00)
--- NOTE | 2019-09-05 19:40 | NUR ---
Report given to Jerri VALDEZ Tele.
--- NOTE | 2019-09-05 20:36 | NUR ---
Called Clammer for sitter for pt for the third floor, states no available AXMINSTER WEAVER at this time.
[2019-09-06] VITALS: BP 137/57
[2019-09-06] MEDS: ZOLPIDEM 5 MG TABLET PO PRN (00:54)
[2019-09-06] MEDS: QUETIAPINE FUMARATE 25 MG TABLET PO PRN ×2 (00:54→17:46)
[2019-09-06 04:00] VITALS: BP 142/65
--- NOTE | 2019-09-06 05:28 | NUR ---
patient received from ER with no family at bedside. ID band on, belongings list and admissions process complete. 1:1 sitter at bedside for safety. s/s of anxiety and agitation Seroquel no signs of acute distress and v/s stable throughout shift. safety and comfort measures provided. bed in lowest position, side rails up x2, and bed alarm on. all needs met. Ambien and Seroquel administered for s/s of Insomnia and agitation. will continue plan of care and endorse accordingly to morning nurse.
[2019-09-06] MEDS: PANTOPRAZOLE SODIUM 40 MG TABLET.DR PO SCH ×2 (06:06→06:12)
--- NOTE | 2019-09-06 07:27 | NUR ---
dr. horn placed new orders for restraints. orders placed.
--- NOTE | 2019-09-06 07:30 | NUR ---
Pt able to wiggle fingers in left hand. Left hand swollen applied ice. Left arm sling intact wrapped with patrick wrap. Pt denies any c/o pain.
[2019-09-06 08:00] VITALS: BP 134/65
--- NOTE | 2019-09-06 08:00 | NUR ---
Pt on 1:1 sitter for safety. Mitten taken off secondary to pt is sleeping and quiet. plan of care implemented for fall precautions. Call light is within reach.
[2019-09-06 08:28] LABS: BASOPHILS % (AUTO) 0.5 % (0.0-2.0); EOSINOPHILS # (AUTO) 0.6 K/uL (0.0-0.7); EOSINOPHILS % (AUTO) 8.2 % (0.0-7.0); HEMATOCRIT 28.6 % (36.7-47.1); HEMOGLOBIN 9.6 g/dL (12.5-16.3); LYMPHOCYTES # (AUTO) 1.1 K/uL (20.0-40.0); LYMPHOCYTES % (AUTO) 16.5 % (20.5-51.5); MEAN CORPUSCULAR HEMOGLOBIN 31.8 uug (23.8-33.4); MEAN CORPUSCULAR HGB CONC 34 g/dL (32.5-36.3); MEAN CORPUSCULAR VOLUME 94.7 fL (73.0-96.2); MONOCYTES # (AUTO) 0.6 K/uL (2.0-10.0); MONOCYTES % (AUTO) 8.2 % (0.0-11.0); NEUTROPHILS # (AUTO) 4.6 K/uL (1.8-8.9); NEUTROPHILS % (AUTO) 66.6 % (38.5-71.5); PLATELET COUNT (AUTO) 143 K/uL (152-348); RED BLOOD CELL COUNT(AUTO) 3.02 MIL/uL (4.06-5.63); WHITE BLOOD COUNT (AUTO) 6.9 K/uL (3.6-10.2)
[2019-09-06] MEDS: MEMANTINE HCL 10 MG TABLET PO SCH ×2 (08:38→17:46)
[2019-09-06] MEDS: DIVALPROEX 250 MG TABLET.DR PO SCH ×2 (08:38→17:46)
[2019-09-06] MEDS: QUETIAPINE FUMARATE 25 MG TABLET PO SCH ×3 (08:39→20:53)
[2019-09-06] MEDS: CLOPIDOGREL 75 MG TABLET PO SCH (08:39)
[2019-09-06] MEDS: LINAGLIPTIN 5 MG TABLET PO SCH (08:39)
[2019-09-06] MEDS: ENALAPRIL 10 MG TABLET PO SCH (08:40)
[2019-09-06] MEDS: FINASTERIDE 5 MG TABLET PO SCH (08:40)
[2019-09-06 08:53] LABS: THYROID STIMULATING HORMONE 1.002 mIU/mL (0.358-3.740)
[2019-09-06 08:55] LABS: ALANINE AMINOTRANSFERASE 22 U/L (16-63); ALKALINE PHOSPHATASE 134 U/L (50-136); ASPARTATE AMINOTRANSFERASE 27 U/L (15-37); BILIRUBIN,TOTAL 0.4 mg/dL (0.2-1.0); CARBON DIOXIDE 29 mmol/L (21-32); CHLORIDE 111 mmol/L (98-107); CREATININE 0.9 mg/dL (0.6-1.3); GLUCOSE 80 mg/dL (74-106); MAGNESIUM 1.3 mg/dL (1.8-2.4); PHOSPHOROUS 3.1 mg/dL (2.5-4.9); POTASSIUM 3.9 mmol/L (3.5-5.1); TOTAL PROTEIN, SERUM 4.7 g/dL (6.4-8.2); UREA NITROGEN, BLOOD 24 mg/dL (7-18); VALPROIC ACID 32 ug/mL (50-100)
[2019-09-06] MEDS ORDERED: Medication Not On Formulary EA (Sitagliptin Phosphate (Januvia) 100 MG) PO SCH (09:00)
[2019-09-06] MEDS ORDERED: Medication Not On Formulary EA (Mirabegron (Myrbetriq) 50 MG) PO SCH (09:00)
[2019-09-06] MEDS ORDERED: POTASSIUM CHLORIDE 10 MEQ TAB.PRT.SR PO SCH (09:00)
[2019-09-06 09:36] LABS: CHOLESTEROL 99 mg/dL (<200); HDL CHOLESTEROL 58 mg/dL (40-60); TRIGLYCERIDES 31 MG/DL (30-150)
[2019-09-06] MEDS: MAGNESIUM SULFATE/D5W 100 ML IV SCH ×4 (11:49→15:08)
[2019-09-06 15:52] VITALS: BP 142/61
--- NOTE | 2019-09-06 16:57 | NUR ---
IV right ac continues to leak even after repositioning catheter. Restarted iv #22 gauge on right hand.
[2019-09-06] MEDS: IV NS 1000 ML 1,000 ML IV PRN (17:42)
[2019-09-06] MEDS: CEFTRIAXONE 1 G in IV DEXTROSE 5% 50 ML IV SCH (17:48)
[2019-09-06] MEDS: DOCUSATE SODIUM 100 MG CAPSULE PO SCH (20:54)
[2019-09-06] MEDS: DONEPEZIL 5 MG TABLET PO SCH (20:54)
[2019-09-06] MEDS: ATORVASTATIN 10 MG TABLET PO SCH (20:54)
[2019-09-06] MEDS ORDERED: ATORVASTATIN 40 MG TABLET PO SCH (21:00)
[2019-09-06 21:08] VITALS: BP 158/72
[2019-09-07 00:54] VITALS: BP 127/61
[2019-09-07] MEDS: QUETIAPINE FUMARATE 25 MG TABLET PO PRN ×2 (01:33→17:08)
[2019-09-07 04:00] VITALS: BP 149/74
[2019-09-07 05:43] LABS: BASOPHILS % (AUTO) 0.3 % (0.0-2.0); EOSINOPHILS # (AUTO) 0.5 K/uL (0.0-0.7); EOSINOPHILS % (AUTO) 5.5 % (0.0-7.0); HEMATOCRIT 29.5 % (36.7-47.1); HEMOGLOBIN 9.7 g/dL (12.5-16.3); LYMPHOCYTES # (AUTO) 1.3 K/uL (20.0-40.0); LYMPHOCYTES % (AUTO) 14.2 % (20.5-51.5); MEAN CORPUSCULAR HEMOGLOBIN 31.4 uug (23.8-33.4); MEAN CORPUSCULAR HGB CONC 33 g/dL (32.5-36.3); MEAN CORPUSCULAR VOLUME 94.8 fL (73.0-96.2); MONOCYTES # (AUTO) 0.6 K/uL (2.0-10.0); MONOCYTES % (AUTO) 6.1 % (0.0-11.0); NEUTROPHILS # (AUTO) 6.7 K/uL (1.8-8.9); NEUTROPHILS % (AUTO) 73.9 % (38.5-71.5); PLATELET COUNT (AUTO) 147 K/uL (152-348); RED BLOOD CELL COUNT(AUTO) 3.11 MIL/uL (4.06-5.63); WHITE BLOOD COUNT (AUTO) 9.1 K/uL (3.6-10.2)
[2019-09-07 06:08] LABS: CREATININE 0.9 mg/dL (0.6-1.3); MAGNESIUM 1.9 mg/dL (1.8-2.4); PHOSPHOROUS 2.9 mg/dL (2.5-4.9); POTASSIUM 3.8 mmol/L (3.5-5.1)
[2019-09-07] MEDS: PANTOPRAZOLE SODIUM 40 MG TABLET.DR PO SCH (06:33)
--- NOTE | 2019-09-07 08:00 | NUR ---
Pt getting out of bed. Sitter at bedside for safety. Pt has good appetite for breakfast. Aspiration precaution implemented during feeds. No coughing noted during feeds. Fall precaution implemented. Sling on left arm on Continue with elevation of left arm and applied ice pack. Left hand less swollen today from yesterday. Pt able to take am meds crushed with pudding. Call light is within reach.
[2019-09-07] MEDS: POTASSIUM CHLORIDE 20 MEQ POWDER PACKET PO SCH (08:43)
[2019-09-07] MEDS: QUETIAPINE FUMARATE 25 MG TABLET PO SCH ×3 (08:43→20:32)
[2019-09-07] MEDS: MEMANTINE HCL 10 MG TABLET PO SCH ×2 (08:43→16:00)
[2019-09-07] MEDS: DIVALPROEX 250 MG TABLET.DR PO SCH ×2 (08:43→16:00)
[2019-09-07] MEDS: TOLTERODINE LA 2 MG CAP.SR.24H PO SCH (08:43)
[2019-09-07] MEDS: LINAGLIPTIN 5 MG TABLET PO SCH (08:44)
[2019-09-07] MEDS: FINASTERIDE 5 MG TABLET PO SCH (08:44)
[2019-09-07] MEDS: ENALAPRIL 10 MG TABLET PO SCH (08:44)
[2019-09-07] MEDS: CLOPIDOGREL 75 MG TABLET PO SCH (08:44)
[2019-09-07 11:21] VITALS: BP 144/75
[2019-09-07 15:59] VITALS: BP 136/68
[2019-09-07] MEDS: CEFTRIAXONE 1 G in IV DEXTROSE 5% 50 ML IV SCH (16:56)
[2019-09-07] MEDS: IV NS 1000 ML 1,000 ML IV PRN (17:51)
--- NOTE | 2019-09-07 18:46 | NUR ---
Pt is in no acute distress. Pt get oob sitter at bedside. Call light is within reach.
[2019-09-07 19:32] VITALS: BP 154/60
[2019-09-07] MEDS: DOCUSATE SODIUM 100 MG CAPSULE PO SCH (20:31)
[2019-09-07] MEDS: DONEPEZIL 5 MG TABLET PO SCH (20:31)
[2019-09-07] MEDS: ATORVASTATIN 10 MG TABLET PO SCH (20:31)
--- NOTE | 2019-09-07 23:00 | NUR ---
HANDS OFF REPORT RECEIVED FROM LUCHO VALDEZ. PT IN NO ACUTE DISTRESS. SITTER AT BEDSIDE. DSAFETY PROVIDED. WILL CONTINUE TO MONITOR.
[2019-09-08] MEDS: ZOLPIDEM 5 MG TABLET PO PRN
[2019-09-08] MEDS: PANTOPRAZOLE SODIUM 40 MG TABLET.DR PO SCH (06:05)
--- NOTE | 2019-09-08 06:19 | NUR ---
PT SLEPT INTERMITTENTLY. SITTER AT BEDSIDE. PT TRYING TO GET OUT OF THE BED. PRESCRIBED MEDICATION GIVEN AND PT TOLERATED IT WELL. SAFETY AND COMFORT PROVIDED. WILL ENDORSE TO INCOMING NURSE FOR CONTINUITY OF CARE.
--- NOTE | 2019-09-08 06:21 | NUR ---
PT SLEPT 4 HOURS. PRESCRIBED MEDICATION GIVEN AND PT TOLERATED IT WELL. SAFETY AND COMFORT PROVIDED. WILL ENDORSE TO INCOMING NURSE FOR CONTINUITY OF CARE. Addendum: 09/08/19 at 0624 by GEORGIE BOURNE RN WRONG PT.
--- NOTE | 2019-09-08 07:48 | NUR ---
Pt getting oob. Pt restless continues to keep on getting out of bed. Decreased Sitter at bedside for safety. Plan of care for today re: fall and aspiration precautions implemented. Call light is within reach.
[2019-09-08] MEDS: LINAGLIPTIN 5 MG TABLET PO SCH (08:04)
[2019-09-08] MEDS: POTASSIUM CHLORIDE 20 MEQ POWDER PACKET PO SCH (08:04)
[2019-09-08] MEDS: TOLTERODINE LA 2 MG CAP.SR.24H PO SCH (08:04)
[2019-09-08] MEDS: QUETIAPINE FUMARATE 25 MG TABLET PO SCH ×3 (08:05→21:00)
[2019-09-08] MEDS: MEMANTINE HCL 10 MG TABLET PO SCH ×2 (08:05→16:08)
[2019-09-08] MEDS: DIVALPROEX 250 MG TABLET.DR PO SCH ×2 (08:05→16:08)
[2019-09-08] MEDS: CLOPIDOGREL 75 MG TABLET PO SCH (08:05)
[2019-09-08] MEDS: FINASTERIDE 5 MG TABLET PO SCH (08:08)
[2019-09-08] MEDS: ENALAPRIL 10 MG TABLET PO SCH (08:08)
--- NOTE | 2019-09-08 10:00 | NUR ---
Physical therapy saw pt. Jaeger at bedside.
[2019-09-08 10:05] VITALS: BP 158/82
[2019-09-08] MEDS: QUETIAPINE FUMARATE 25 MG TABLET PO PRN (11:36)
--- NOTE | 2019-09-08 13:00 | NUR ---
Pt too lethargic held 1300 seroquel. Notified IVIS hensley. Awaiting psychiatry evaluation per INSTRUCTIONAL TECHNOLOGIST Benjamin request.
--- NOTE | 2019-09-08 13:33 | NUR ---
Asked IVIS Hensley if ok to check left arm for pressure ulcer secondary to no fracture noted. IVIS Hensley Gave ok to check and unwrap patrick and take off temporary fiberglass support and put left arm on sling. Picture taken bruising noted on left arm posterior and anteriorly showed IVIS hensley. Neurocheck remains intact.
[2019-09-08] MEDS ORDERED: LEVOFLOXACIN 750 MG TABLET PO SCH ×2 (14:15→16:00)
[2019-09-08] MEDS: ACETAMINOPHEN 325 MG TABLET PO PRN ×2 (14:19)
--- NOTE | 2019-09-08 15:06 | NUR ---
EKG done as ordered per IVIS hensley aware of qtc interval result WNL and notified pharmacist for new med levaquin and seroquel.
[2019-09-08 15:31] VITALS: BP 167/85
--- NOTE | 2019-09-08 18:59 | NUR ---
Stool specimen collected by BIOPROCESS ENGINEER and to be sent to lab. Pt Had large bowel movement.
[2019-09-08 19:30] VITALS: BP 168/77
--- NOTE | 2019-09-08 19:30 | NUR ---
patient left arm is on a sling , able to move fingers , nails , wnl
--- NOTE | 2019-09-08 19:30 | NUR ---
RECEIVED PATIENT ONLY ON SLING , 1 + EDEMA , NAIL COLOR WNL
[2019-09-08] MEDS: DOCUSATE SODIUM 100 MG CAPSULE PO SCH (21:00)
[2019-09-08] MEDS: ATORVASTATIN 10 MG TABLET PO SCH (21:00)
[2019-09-08] MEDS: DONEPEZIL 5 MG TABLET PO SCH (21:00)
[2019-09-08] MEDS ORDERED: SULFAMETH/TRIMETH 800/160 MG TABLET PO SCH (21:00)
[2019-09-08 23:45] VITALS: BP 157/88
[2019-09-09] MEDS: IV NS 1000 ML 1,000 ML IV PRN (00:20)
--- NOTE | 2019-09-09 01:36 | NUR ---
Bed mobility: min assist Addendum: 09/09/19 at 0136 by ELIANA ART RN Amended: Links added.
[2019-09-09] MEDS ORDERED: ACETAMINOPHEN 325 MG SUPP RC PRN (03:00)
[2019-09-09] MEDS ORDERED: ACETAMINOPHEN 650 MG SUPP.RECT RC PRN (03:15)
--- NOTE | 2019-09-09 03:29 | NUR ---
DR URBINA HAS BEEN CALLED REGARDING SUSTAINING HEART RATE OF 130 'S OF THE PATIENT , DESPITE BEING CLEANED AND MEDICATED FOR PAIN , WAITING FOR CALL BACK
[2019-09-09 04:00] VITALS: BP 131/95
--- NOTE | 2019-09-09 04:00 | NUR ---
DR URBINA ORDERED IV TO BE DC'S , LASIX 20 MG IV X ONCE. CARDIZEM 10 MG Q 6 HOURS PRN FOR HR > 110
--- NOTE | 2019-09-09 04:00 | NUR ---
DR URBINA CALLED BACK , GIVEN AN UPDATE ON PATIENT'S CONDITION , RECEIVED ORDERS
[2019-09-09] MEDS ORDERED: DILTIAZEM HCL 25 MG IV IV PRN (04:15)
[2019-09-09] MEDS ORDERED: FUROSEMIDE 40 MG/4 ML VIAL IV ONE (04:30)
[2019-09-09 06:45] LABS: BASOPHILS # (AUTO) 0.1 K/uL (0.0-8.0); BASOPHILS % (AUTO) 0.5 % (0.0-2.0); HEMATOCRIT 34.3 % (36.7-47.1); HEMOGLOBIN 11.4 g/dL (12.5-16.3); LYMPHOCYTES # (AUTO) 0.7 K/uL (20.0-40.0); LYMPHOCYTES % (AUTO) 5.9 % (20.5-51.5); MEAN CORPUSCULAR HEMOGLOBIN 31.9 uug (23.8-33.4); MEAN CORPUSCULAR HGB CONC 33 g/dL (32.5-36.3); MONOCYTES # (AUTO) 0.7 K/uL (2.0-10.0); MONOCYTES % (AUTO) 5.7 % (0.0-11.0); NEUTROPHILS # (AUTO) 10.1 K/uL (1.8-8.9); NEUTROPHILS % (AUTO) 87.9 % (38.5-71.5); PLATELET COUNT (AUTO) 167 K/uL (152-348); RED BLOOD CELL COUNT(AUTO) 3.57 MIL/uL (4.06-5.63); WHITE BLOOD COUNT (AUTO) 11.5 K/uL (3.6-10.2)
[2019-09-09] MEDS: PANTOPRAZOLE SODIUM 40 MG TABLET.DR PO SCH (06:48)
[2019-09-09 06:53] LABS: CREATININE 1.1 mg/dL (0.6-1.3); MAGNESIUM 1.3 mg/dL (1.8-2.4); PHOSPHOROUS 2.7 mg/dL (2.5-4.9); POTASSIUM 3.7 mmol/L (3.5-5.1)
--- NOTE | 2019-09-09 07:10 | NUR ---
DR HOWELL NOTIFIED OF CRITICAL POTASIUM LEVEL , RECEIVED ORDERS AND ENDORSD TO DAY SHIFT NURSE
[2019-09-09 08:00] VITALS: BP 133/84
[2019-09-09] MEDS: POTASSIUM CHLORIDE 20 MEQ POWDER PACKET PO SCH (08:15)
[2019-09-09] MEDS: TOLTERODINE LA 2 MG CAP.SR.24H PO SCH (08:16)
[2019-09-09] MEDS: DIVALPROEX 250 MG TABLET.DR PO SCH ×2 (08:17→16:56)
[2019-09-09] MEDS: LINAGLIPTIN 5 MG TABLET PO SCH (08:17)
[2019-09-09] MEDS: CLOPIDOGREL 75 MG TABLET PO SCH (08:17)
[2019-09-09] MEDS: QUETIAPINE FUMARATE 25 MG TABLET PO SCH ×3 (08:18→21:50)
[2019-09-09] MEDS: MEMANTINE HCL 10 MG TABLET PO SCH ×2 (08:18→16:56)
[2019-09-09] MEDS: ENALAPRIL 10 MG TABLET PO SCH (08:20)
[2019-09-09] MEDS: FINASTERIDE 5 MG TABLET PO SCH (08:30)
[2019-09-09] MEDS: CEFTRIAXONE 1 G in IV DEXTROSE 5% 50 ML IV SCH (11:47)
[2019-09-09 11:56] LABS: *OCCULT BLOOD STOOL NEGATIVE (NEGATIVE)
[2019-09-09 12:00] VITALS: BP 110/74
[2019-09-09] MEDS: MAGNESIUM SULFATE/D5W 100 ML IV SCH ×4 (14:59→18:03)
[2019-09-09 16:00] VITALS: BP 120/71
[2019-09-09] MEDS: ATORVASTATIN 10 MG TABLET PO SCH (21:50)
[2019-09-09] MEDS: DOCUSATE SODIUM 100 MG CAPSULE PO SCH (21:50)
[2019-09-09] MEDS: DONEPEZIL 5 MG TABLET PO SCH (21:50)
[2019-09-10] VITALS: BP 139/84
[2019-09-10 04:00] VITALS: BP 144/90
[2019-09-10] MEDS: PANTOPRAZOLE SODIUM 40 MG TABLET.DR PO SCH (06:30)
[2019-09-10 06:33] LABS: BASOPHILS % (AUTO) 0.2 % (0.0-2.0); EOSINOPHILS % (AUTO) 0.2 % (0.0-7.0); HEMATOCRIT 35.1 % (36.7-47.1); HEMOGLOBIN 11.6 g/dL (12.5-16.3); LYMPHOCYTES # (AUTO) 1.1 K/uL (20.0-40.0); MEAN CORPUSCULAR HGB CONC 33 g/dL (32.5-36.3); MONOCYTES % (AUTO) 6.9 % (0.0-11.0); NEUTROPHILS # (AUTO) 12.8 K/uL (1.8-8.9); NEUTROPHILS % (AUTO) 85.7 % (38.5-71.5); PLATELET COUNT (AUTO) 184 K/uL (152-348); RED BLOOD CELL COUNT(AUTO) 3.73 MIL/uL (4.06-5.63)
[2019-09-10 06:50] LABS: CREATININE 1.1 mg/dL (0.6-1.3); MAGNESIUM 2.1 mg/dL (1.8-2.4)
--- NOTE | 2019-09-10 07:20 | NUR ---
Received patient in bed, asleep with head of bed elevated. Received o2 at 2L/min via NC, in no acute or respiratory distress. Fall and safety precautions observed, with constant visual monitoring by staff. On 1:1 monitoring. Bed wheels locked, side rails up x 3, bed alarm on, and bed at lowest position. Call light within reach. Will continue to monitor patient.
[2019-09-10] MEDS: DIVALPROEX 250 MG TABLET.DR PO SCH ×2 (10:30→17:54)
[2019-09-10] MEDS: TOLTERODINE LA 2 MG CAP.SR.24H PO SCH (10:31)
[2019-09-10] MEDS: FINASTERIDE 5 MG TABLET PO SCH (10:32)
[2019-09-10] MEDS: CLOPIDOGREL 75 MG TABLET PO SCH (10:32)
[2019-09-10] MEDS: QUETIAPINE FUMARATE 25 MG TABLET PO SCH ×4 (10:32→20:48)
[2019-09-10] MEDS: MEMANTINE HCL 10 MG TABLET PO SCH ×2 (10:32→17:54)
[2019-09-10] MEDS: LINAGLIPTIN 5 MG TABLET PO SCH (10:33)
[2019-09-10] MEDS: ENALAPRIL 10 MG TABLET PO SCH (10:37)
[2019-09-10] MEDS: CEFTRIAXONE 1 G in IV DEXTROSE 5% 50 ML IV SCH (10:38)
[2019-09-10 11:00] VITALS: BP 187/102
--- NOTE | 2019-09-10 11:45 | NUR ---
Nutrition consult received for "eats less than 50% of meal". RD is following. Recent PO intakes are 25-50% of meals and nutrition is likely suboptimal. Patient with h/o dementia; is confused; psych following; 1:1 sitter. Will provide oral supplement Ensure Enlive, TID, to meet nutritional needs. Carb restricted diet is likely not indicated, A1c is 5.9, rec to discontinue carb controlled modifier. RD to f/u. Addendum: 09/10/19 at [address] Amended: Links added.
[2019-09-10] MEDS: POTASSIUM CHLORIDE 20 MEQ POWDER PACKET PO SCH (12:53)
--- NOTE | 2019-09-10 13:00 | NUR ---
Seroquel dose held at this time. Patient drowsy, but easily aroused by calling of name. Patient in no acute distress. Patient's daughter is at bedside and requested not to give seroquel at this time. Will continue to monitor patient.
--- NOTE | 2019-09-10 14:10 | NUR ---
Received positive stool for Cdiff report. Spoke with LAI Alexander and relayed positive Cdiff report and received orders to start Vanco 125 oral Q6hrs and contact isolation precautions.
[2019-09-10 15:55] VITALS: BP 165/99
--- NOTE | 2019-09-10 17:39 | NUR ---
Spoke with PARTS SPECIALIST Savanna regarding positive Cdiff report and urine culture report.
[2019-09-10] MEDS: VANCOMYCIN FOR PO/GT/NG USE PO SCH (17:55)
--- NOTE | 2019-09-10 18:00 | NUR ---
Patient noted to be more awake. Participating in eating his dinner, but noted to have episodes of coughing in between feeding on both fluids and food. Food particles coming from the nasal trumpet. Patient suctioned. In no respiratory distress.
[2019-09-10] MEDS ORDERED: Z GUARD REMEDY PASTE 57 GM TUBE TOP PRN (18:45)
--- NOTE | 2019-09-10 19:00 | NUR ---
PATIENT ALERT BUT WITH CONFUSION, NO SOB NO CHEST PAIN, TELE MONITOR SINUS RHYTHM SINUS TACHY. PATIENT WITH EPISODE OF RESTLESSNESS, TRIES TO CLIM OUT OF BED. CONT ON 1;1 SITTER FOR SAFETY.
[2019-09-10 20:00] VITALS: BP 160/65
--- NOTE | 2019-09-10 20:20 | NUR ---
PATIENT LACTIC ACID 2.4,NOTIFY JOSE TSAI WITH NO NEW ORDER AT THIS TIME.
[2019-09-10] MEDS: DOCUSATE SODIUM 100 MG CAPSULE PO SCH (20:47)
[2019-09-10] MEDS: DONEPEZIL 5 MG TABLET PO SCH (20:47)
[2019-09-10] MEDS: ATORVASTATIN 10 MG TABLET PO SCH (20:51)
[2019-09-10 22:30] LABS: BILIRUBIN,DIRECT 0.1 mg/dL (0.0-0.2); BILIRUBIN,TOTAL 0.3 mg/dL (0.2-1.0)
--- NOTE | 2019-09-10 22:43 | NUR ---
REPEAT LACTIC ACID 2.2, NOTIFY JOSE TSAI NO NEW ORDER.
[2019-09-11] VITALS: BP 138/74
[2019-09-11] MEDS: VANCOMYCIN FOR PO/GT/NG USE PO SCH ×4 (00:52→17:50)
[2019-09-11 04:00] VITALS: BP 140/71
[2019-09-11] MEDS: PANTOPRAZOLE SODIUM 40 MG TABLET.DR PO SCH (06:17)
--- NOTE | 2019-09-11 06:44 | NUR ---
PATIENT ALERT WITH CONFUSION, NO SOB NO CHEST PAIN, L ARM SLING IN PLACE, PATIENT REMAINS ON CONTACT ISOLATION, C DIFF, HAD BM X2 WITH ODOR NOTED, PATIENT STILL HAS EPISODE OF RESTLESS, TRIES TO CLIMB OUT OF BED, CONT 1;1 SITTER FOR SAFETY, CONT TO MONITOR.
[2019-09-11 06:53] LABS: BASOPHILS % (AUTO) 0.1 % (0.0-2.0); EOSINOPHILS # (AUTO) 0.1 K/uL (0.0-0.7); EOSINOPHILS % (AUTO) 0.4 % (0.0-7.0); HEMATOCRIT 35.1 % (36.7-47.1); HEMOGLOBIN 11.4 g/dL (12.5-16.3); LYMPHOCYTES # (AUTO) 1.1 K/uL (20.0-40.0); MEAN CORPUSCULAR HEMOGLOBIN 31.3 uug (23.8-33.4); MEAN CORPUSCULAR HGB CONC 33 g/dL (32.5-36.3); MEAN CORPUSCULAR VOLUME 96.2 fL (73.0-96.2); MONOCYTES # (AUTO) 1.6 K/uL (2.0-10.0); MONOCYTES % (AUTO) 9.1 % (0.0-11.0); NEUTROPHILS % (AUTO) 84.4 % (38.5-71.5); PLATELET COUNT (AUTO) 171 K/uL (152-348); RED BLOOD CELL COUNT(AUTO) 3.65 MIL/uL (4.06-5.63); WHITE BLOOD COUNT (AUTO) 17.7 K/uL (3.6-10.2)
[2019-09-11 06:56] LABS: CREATININE 1.3 mg/dL (0.6-1.3); MAGNESIUM 2.1 mg/dL (1.8-2.4); POTASSIUM 4.2 mmol/L (3.5-5.1)
--- NOTE | 2019-09-11 07:30 | NUR ---
Sleeping, appears comfortable. O2 at 2L/NC, with nasal trumpet
[2019-09-11 08:00] VITALS: BP 178/89
[2019-09-11] MEDS: DIVALPROEX 250 MG TABLET.DR PO SCH ×2 (08:56→17:48)
[2019-09-11] MEDS: MEMANTINE HCL 10 MG TABLET PO SCH ×2 (08:57→17:49)
[2019-09-11] MEDS: CLOPIDOGREL 75 MG TABLET PO SCH (08:57)
[2019-09-11] MEDS: TOLTERODINE LA 2 MG CAP.SR.24H PO SCH (08:57)
[2019-09-11] MEDS: POTASSIUM CHLORIDE 20 MEQ POWDER PACKET PO SCH (08:57)
[2019-09-11] MEDS: QUETIAPINE FUMARATE 25 MG TABLET PO SCH ×4 (08:58→20:32)
[2019-09-11] MEDS: FINASTERIDE 5 MG TABLET PO SCH (08:58)
[2019-09-11] MEDS: LINAGLIPTIN 5 MG TABLET PO SCH (08:59)
[2019-09-11 09:09] VITALS: BP 178/89
[2019-09-11] MEDS: ENALAPRIL 10 MG TABLET PO SCH (09:09)
--- NOTE | 2019-09-11 09:30 | NUR ---
ST eval done; with noted actual aspiration; NPO except for medications; Repeat CXR done
[2019-09-11 12:00] VITALS: BP 157/76
--- NOTE | 2019-09-11 13:00 | NUR ---
Seroquel not given, patient drowsy
[2019-09-11] MEDS: METRONIDAZOLE 500 MG/NS 100ML 500 MG in PREMIXED 1 EACH IV SCH ×2 (14:13→21:16)
--- NOTE | 2019-09-11 15:00 | NUR ---
Straight catheterization done. UA CS sent to lab. With loose BM. Incontinence care done
[2019-09-11 15:08] LABS: *BILIRUBIN,URIN NEGATIVE (NEGATIVE); *BLOOD, URINE NEGATIVE (NEGATIVE); *CLARITY,URINE CLEAR (CLEAR); *COLOR,URINE YELLOW (YELLOW); *KETONES,URINE NEGATIVE (NEGATIVE); *UROBILINOGEN,URINE 0.2 E.U./dl (NORMAL); LEUKOCYTE ESTERASE ,URINE NEGATIVE (NEGATIVE); NITRITE, URINE NEGATIVE (NEGATIVE); PH,URINE 5.5 (5.0-8.0); UGLUCOSE NEGATIVE (NEGATIVE)
[2019-09-11 15:28] LABS: MUCUS,URINE FEW /LPF (0-FEW); SQUAMOUS EPITHELIAL CELL,UR FEW /HPF (NONE SEEN); WBC,URINE 0-3 /HPF (0-3)
[2019-09-11 16:00] VITALS: BP 141/70
--- NOTE | 2019-09-11 18:31 | NUR ---
Patient was NPO for breakfast and lunch. Awake for dinner, able to feed with aspiration precaution. Patient noted to be more cognitive impaired, not able to follow. Noted small amount of apple sauce coming out of the trumpet. Secretions suctioned. Discussed with CN. Will remove nasal trumpet
[2019-09-11] MEDS: DOCUSATE SODIUM 100 MG CAPSULE PO SCH ×2 (20:32→21:00)
[2019-09-11] MEDS: ATORVASTATIN 10 MG TABLET PO SCH (20:32)
[2019-09-11] MEDS: DONEPEZIL 5 MG TABLET PO SCH (20:32)
[2019-09-12] MEDS: VANCOMYCIN FOR PO/GT/NG USE PO SCH ×4 (00:19→17:28)
[2019-09-12] MEDS: METRONIDAZOLE 500 MG/NS 100ML 500 MG in PREMIXED 1 EACH IV SCH ×3 (05:42→21:36)
[2019-09-12] MEDS: PANTOPRAZOLE SODIUM 40 MG TABLET.DR PO SCH (06:04)
[2019-09-12 06:45] LABS: BASOPHILS % (AUTO) 0.1 % (0.0-2.0); EOSINOPHILS # (AUTO) 0.4 K/uL (0.0-0.7); EOSINOPHILS % (AUTO) 2.4 % (0.0-7.0); HEMOGLOBIN 9.9 g/dL (12.5-16.3); LYMPHOCYTES # (AUTO) 1.5 K/uL (20.0-40.0); LYMPHOCYTES % (AUTO) 9.3 % (20.5-51.5); MEAN CORPUSCULAR HEMOGLOBIN 31.2 uug (23.8-33.4); MEAN CORPUSCULAR HGB CONC 33 g/dL (32.5-36.3); MEAN CORPUSCULAR VOLUME 94.5 fL (73.0-96.2); MONOCYTES # (AUTO) 1.4 K/uL (2.0-10.0); MONOCYTES % (AUTO) 8.2 % (0.0-11.0); NEUTROPHILS # (AUTO) 13.3 K/uL (1.8-8.9); PLATELET COUNT (AUTO) 180 K/uL (152-348); RED BLOOD CELL COUNT(AUTO) 3.17 MIL/uL (4.06-5.63); WHITE BLOOD COUNT (AUTO) 16.6 K/uL (3.6-10.2)
[2019-09-12 07:04] LABS: BILIRUBIN,TOTAL 0.3 mg/dL (0.2-1.0); CREATININE 1.2 mg/dL (0.6-1.3); MAGNESIUM 2.2 mg/dL (1.8-2.4); PHOSPHOROUS 3.2 mg/dL (2.5-4.9); POTASSIUM 4.1 mmol/L (3.5-5.1); TOTAL PROTEIN, SERUM 4.8 g/dL (6.4-8.2)
--- NOTE | 2019-09-12 08:00 | NUR ---
Received patient awake in bed. AAOx1. Mainly Monegasque speaking. Aspiration precautions observed. IV on L wrist intact and patent. Safety measures implemented. Will continue to monitor.
[2019-09-12] MEDS: POTASSIUM CHLORIDE 20 MEQ POWDER PACKET PO SCH (09:37)
[2019-09-12] MEDS: TOLTERODINE LA 2 MG CAP.SR.24H PO SCH (09:37)
[2019-09-12] MEDS: CLOPIDOGREL 75 MG TABLET PO SCH (09:37)
[2019-09-12] MEDS: QUETIAPINE FUMARATE 25 MG TABLET PO SCH ×3 (09:40→20:45)
[2019-09-12] MEDS: MEMANTINE HCL 10 MG TABLET PO SCH ×2 (09:40→17:27)
[2019-09-12] MEDS: LINAGLIPTIN 5 MG TABLET PO SCH (09:41)
[2019-09-12] MEDS: FINASTERIDE 5 MG TABLET PO SCH (09:41)
[2019-09-12] MEDS: DIVALPROEX 250 MG TABLET.DR PO SCH ×2 (09:42→17:27)
[2019-09-12] MEDS: ENALAPRIL 10 MG TABLET PO SCH (09:42)
--- NOTE | 2019-09-12 18:35 | NUR ---
No s/s of acute distress. Comfort provided at all times. Aspiration precautions continued. Will endorse care accordingly.
--- NOTE | 2019-09-12 19:47 | NUR ---
Received patient awake in bed. AAOx1. Mainly Cameroonian speaking. Aspiration precautions observed. IV on L wrist intact and patent. Safety measures implemented. Will continue to monitor.
[2019-09-12 20:00] VITALS: BP 144/70
[2019-09-12] MEDS: DOCUSATE SODIUM 100 MG CAPSULE PO SCH (20:44)
[2019-09-12] MEDS: ATORVASTATIN 10 MG TABLET PO SCH (20:45)
[2019-09-12] MEDS: DONEPEZIL 5 MG TABLET PO SCH (20:45)
[2019-09-12 23:59] VITALS: BP 150/78
[2019-09-13] MEDS: VANCOMYCIN FOR PO/GT/NG USE PO SCH ×5 (00:28→23:56)
[2019-09-13 04:00] VITALS: BP 127/59
[2019-09-13] MEDS: METRONIDAZOLE 500 MG/NS 100ML 500 MG in PREMIXED 1 EACH IV SCH ×3 (06:10→21:03)
[2019-09-13] MEDS: PANTOPRAZOLE SODIUM 40 MG TABLET.DR PO SCH (06:10)
--- NOTE | 2019-09-13 06:37 | NUR ---
No adverse events overnight. Patient kept comfortable. Aspiration precautions maintained. No excessive secretions noted. Patient slept intermittently. x3 loose to watery brown stools. Stool softeners held last night. VS remains stable. Remained sinus rhythm on tele, no episodes of tachycardia. Still with episodes of restlessness m/b trying to get out of bed. Sitter ensured patient's safety. Will endorse accordingly.
[2019-09-13 06:41] LABS: BASOPHILS % (AUTO) 0.2 % (0.0-2.0); EOSINOPHILS # (AUTO) 0.4 K/uL (0.0-0.7); EOSINOPHILS % (AUTO) 3.2 % (0.0-7.0); HEMATOCRIT 27.9 % (36.7-47.1); HEMOGLOBIN 9.2 g/dL (12.5-16.3); LYMPHOCYTES # (AUTO) 0.9 K/uL (20.0-40.0); LYMPHOCYTES % (AUTO) 7.4 % (20.5-51.5); MEAN CORPUSCULAR HEMOGLOBIN 31.5 uug (23.8-33.4); MEAN CORPUSCULAR HGB CONC 33 g/dL (32.5-36.3); MEAN CORPUSCULAR VOLUME 95.3 fL (73.0-96.2); MONOCYTES # (AUTO) 0.9 K/uL (2.0-10.0); MONOCYTES % (AUTO) 7.5 % (0.0-11.0); NEUTROPHILS # (AUTO) 9.8 K/uL (1.8-8.9); NEUTROPHILS % (AUTO) 81.7 % (38.5-71.5); PLATELET COUNT (AUTO) 181 K/uL (152-348); RED BLOOD CELL COUNT(AUTO) 2.93 MIL/uL (4.06-5.63)
[2019-09-13 06:49] LABS: CREATININE 0.9 mg/dL (0.6-1.3); POTASSIUM 3.4 mmol/L (3.5-5.1)
[2019-09-13] MEDS: POTASSIUM CHLORIDE 20 MEQ POWDER PACKET PO SCH (08:40)
[2019-09-13] MEDS: CLOPIDOGREL 75 MG TABLET PO SCH (08:41)
[2019-09-13] MEDS: TOLTERODINE LA 2 MG CAP.SR.24H PO SCH (08:41)
[2019-09-13] MEDS: MEMANTINE HCL 10 MG TABLET PO SCH ×2 (08:41→16:07)
[2019-09-13] MEDS: QUETIAPINE FUMARATE 25 MG TABLET PO SCH ×3 (08:42→20:58)
[2019-09-13] MEDS: FINASTERIDE 5 MG TABLET PO SCH (08:42)
[2019-09-13] MEDS: LINAGLIPTIN 5 MG TABLET PO SCH (08:43)
[2019-09-13] MEDS: DIVALPROEX 250 MG TABLET.DR PO SCH ×2 (09:04→16:07)
[2019-09-13] MEDS: ENALAPRIL 10 MG TABLET PO SCH (09:05)
--- NOTE | 2019-09-13 09:11 | NUR ---
patient is in bed, no sob,resp even nonlabored, intermittently sleeping, was awake for meal, tolerated meds well, no episode of agitation noted at this time. continue on contact precautions for c-diff, kept clean and dry. continue on atb as ordered. no adverse reactions noted, such as no rashes, no vomiting, continue to monitor
[2019-09-13 11:00] VITALS: BP 143/61
--- NOTE | 2019-09-13 12:51 | NUR ---
patient visited patient and stated that he is too sleepy, asked about medication, explained about meds. stated not to give him seroquel lunch time. held seroquel lunch time dose per family request
[2019-09-13] MEDS ORDERED: POTASSIUM CHLORIDE 20 MEQ TAB.PRT.SR PO ONE (13:15)
[2019-09-13] MEDS ORDERED: VANC500V PO (13:33)
[2019-09-13] MEDS ORDERED: METR500T PO (13:33)
[2019-09-13] MEDS ORDERED: ATOR10TA PO (13:34)
[2019-09-13] MEDS ORDERED: POTASSIUM CHLORIDE 20 MEQ POWDER PACKET PO ONE (14:30)
--- NOTE | 2019-09-13 17:22 | NUR ---
PATIENT IS AWAKE, NO SOB, RESP EVEN NONLABORED,SKIN WARM AND DRY TO TOUCH, CONTINUE ON CONTACT ISOLATION, NOTED WITH WATERY DIARRHEA X2, KEPT CLEAN AND DRY, NEEDS ATTENDED TIMELY. PATIENT TOLERATED MEDS AND MEALS WELL.
--- NOTE | 2019-09-13 18:58 | NUR ---
patient discharge is pending because of snf placement, DNP Benjamin aware.
--- NOTE | 2019-09-13 19:15 | NUR ---
Received patient awake in bed. AAOx1. Mainly Bahraini speaking. Aspiration precautions observed. IV on L wrist intact and patent. Safety measures implemented. Will continue to monitor.
[2019-09-13 20:00] VITALS: BP 111/61
[2019-09-13] MEDS: ATORVASTATIN 10 MG TABLET PO SCH (20:57)
[2019-09-13] MEDS: DONEPEZIL 5 MG TABLET PO SCH (20:57)
[2019-09-13] MEDS: DOCUSATE SODIUM 100 MG CAPSULE PO SCH (21:00)
[2019-09-13] MEDS: ZOLPIDEM 5 MG TABLET PO PRN (23:56)
[2019-09-14] VITALS: BP 140/65
--- NOTE | 2019-09-14 00:30 | NUR ---
Patient noted to have IV leaking, pulled out. Reinserted new IV on R forearm. Kept heplock at this time. Pt remains on sinus rhythm. Intermittently awake and restless, trying to get out of bed. Sitter and RN easily redirects patient back to sleep. No loose stools so far, patient with BM but soft. Will continue to monitor.
[2019-09-14 04:30] VITALS: BP 112/53
[2019-09-14] MEDS: METRONIDAZOLE 500 MG/NS 100ML 500 MG in PREMIXED 1 EACH IV SCH (05:34)
[2019-09-14] MEDS: VANCOMYCIN FOR PO/GT/NG USE PO SCH ×2 (05:34→12:23)
[2019-09-14] MEDS: PANTOPRAZOLE SODIUM 40 MG TABLET.DR PO SCH (05:34)
--- NOTE | 2019-09-14 05:57 | NUR ---
Patient slept intermittently, episodes of trying to get out of bed and restless. Gave 1x Ambien last night, appears effective. Slept for about 6 hours. Sinus Justin on Tele @ 56 with some PVCs. VS stable as recorded. Will continue to monitor and endorse accordingly.
[2019-09-14 06:20] LABS: CREATININE 0.8 mg/dL (0.6-1.3); POTASSIUM 4.8 mmol/L (3.5-5.1)
--- NOTE | 2019-09-14 08:00 | NUR ---
Left arm sling intact and in placed. Pt able to move fingers and squeeze hand. Sitter at bedside for safety. Pt is in no acute distress. call light is within reach. aspiration precaution implemented. Pt on 1st step air mattresses for prevention of skin breakdown. SCD inplaced.
[2019-09-14] MEDS: DIVALPROEX 250 MG TABLET.DR PO SCH (09:05)
[2019-09-14] MEDS: POTASSIUM CHLORIDE 20 MEQ POWDER PACKET PO SCH (09:05)
[2019-09-14] MEDS: TOLTERODINE LA 2 MG CAP.SR.24H PO SCH (09:05)
[2019-09-14] MEDS: MEMANTINE HCL 10 MG TABLET PO SCH (09:06)
[2019-09-14] MEDS: QUETIAPINE FUMARATE 25 MG TABLET PO SCH ×2 (09:06→12:23)
[2019-09-14] MEDS: CLOPIDOGREL 75 MG TABLET PO SCH (09:06)
[2019-09-14] MEDS: LINAGLIPTIN 5 MG TABLET PO SCH (09:06)
[2019-09-14] MEDS: FINASTERIDE 5 MG TABLET PO SCH (09:06)
[2019-09-14] MEDS: ENALAPRIL 10 MG TABLET PO SCH (09:07)
[2019-09-14 11:52] VITALS: BP 153/46
--- NOTE | 2019-09-14 14:00 | NUR ---
Pt confused and demented. Pt is in no acute distress. Attempted to give report to Adria york and not successful waited for 35 mins spoke with assistant secretary and ok to send pt without any report. Instructed to call me back when they have time to get report. Report given to EMT's. IV taken out on right forearm. Pt is in no acute distress. Updated pictures taken of right elbow skin tare, left lower leg bruising, right hand bruising, and left arm bruising. Pt left arm remains on sling.
[2019-09-21] MEDS ORDERED: METR500T PO (09:12)
[2019-09-21] MEDS ORDERED: VANC500V PO (09:12)
== END 2019-09-14 14:10 | DRG 871 ==
LOC: ER 15:56 → MEDSURG3 20:54 → TELE3 21:40
PROVIDERS: ADMIT Internal Medicine; ATTEND Nurse Practitioner Acute Care
PROC: 0RSMXZZ Reposition Left Elbow Joint, External Approach (ICD-10-PCS; principal; 2019-09-05)
DX: A41.9 Sepsis, unspecified organism (principal); G93.41 Metabolic encephalopathy; E43 Unspecified severe protein-calorie malnutrition; N39.0 Urinary tract infection, site not specified; F02.81 Dementia in other diseases classified elsewhere, unspecified severity, with behavioral disturbance; E44.0 Moderate protein-calorie malnutrition; E87.2 Acidosis; A04.72 Enterocolitis due to Clostridium difficile, not specified as recurrent; Z68.1 Body mass index [BMI] 19.9 or less, adult; G30.9 Alzheimer's disease, unspecified; E86.0 Dehydration; Z91.83 Wandering in diseases classified elsewhere; R32 Unspecified urinary incontinence; S53.135A Medial dislocation of left ulnohumeral joint, initial encounter; X58.XXXA Exposure to other specified factors, initial encounter; Y92.89 Other specified places as the place of occurrence of the external cause; E78.5 Hyperlipidemia, unspecified; E11.9 Type 2 diabetes mellitus without complications; S32.029D Unspecified fracture of second lumbar vertebra, subsequent encounter for fracture with routine healing; W17.89XD Other fall from one level to another, subsequent encounter; N40.0 Benign prostatic hyperplasia without lower urinary tract symptoms; R13.10 Dysphagia, unspecified; I70.0 Atherosclerosis of aorta; D63.8 Anemia in other chronic diseases classified elsewhere; F39 Unspecified mood [affective] disorder; I11.9 Hypertensive heart disease without heart failure; Z86.73 Personal history of transient ischemic attack (TIA), and cerebral infarction without residual deficits; Z79.899 Other long term (current) drug therapy; Z79.84 Long term (current) use of oral hypoglycemic drugs; Z79.02 Long term (current) use of antithrombotics/antiplatelets; R65.20 Severe sepsis without septic shock
CPT/HCPCS: 36415; 70030-TC; 70450; 71045; 72170; 73080; 74018; 80164; 83605; 83735; 84100; 84443; 85025; 85651; 87040; 87077; 87086; 93005; 93307; A4663; C1758; G0378; G0500; J0696; J1940; J3370; J3475; J3490; J7030; J7040; J7050; J7060

== ENCOUNTER 2019-09-17 23:26 | Inpatient (IN) | END 2019-09-21 21:45 | DRG 563 | DX: M24.422 Recurrent dislocation, left elbow (principal); F02.81 Dementia in other diseases classified elsewhere, unspecified severity, with behavioral disturbance; E87.0 Hyperosmolality and hypernatremia; A04.72 Enterocolitis due to Clostridium difficile, not specified as recurrent; G93.40 Encephalopathy, unspecified; S00.81XA Abrasion of other part of head, initial encounter; G30.9 Alzheimer's disease, unspecified; W05.0XXA Fall from non-moving wheelchair, initial encounter; Y92.129 Unspecified place in nursing home as the place of occurrence of the external cause; S00.83XA Contusion of other part of head, initial encounter; Z91.83 Wandering in diseases classified elsewhere; S52.002A Unspecified fracture of upper end of left ulna, initial encounter for closed fracture; E78.5 Hyperlipidemia, unspecified; N40.0 Benign prostatic hyperplasia without lower urinary tract symptoms; Z86.73 Personal history of transient ischemic attack (TIA), and cerebral infarction without residual deficits; D63.8 Anemia in other chronic diseases classified elsewhere; E11.9 Type 2 diabetes mellitus without complications; I10 Essential (primary) hypertension; F10.10 Alcohol abuse, uncomplicated; Y90.9 Presence of alcohol in blood, level not specified; Z79.84 Long term (current) use of oral hypoglycemic drugs; Z79.02 Long term (current) use of antithrombotics/antiplatelets; Z79.899 Other long term (current) drug therapy; E86.1 Hypovolemia; D72.829 Elevated white blood cell count, unspecified ==

== ENCOUNTER 2019-11-18 01:41 | Inpatient (IN) | payer MEDICARE, OTHER ==
[~2019-11-18] VITALS: Ht 172.7 cm; Wt 59.0 kg
--- NOTE | 2019-11-18 02:10 | NUR ---
PT BROUGHT IN BY [facility]IA GURNEY FROM [facility] PT IS AOX0, ABLE TO SPEAK SINGLE WORDS (MAINLY INDONESIAN) NOTED AT RA NOTED L LOWER HAIR SUPERFICIAL ABRASION LESS THAN 2CM PT TRYING TO GET OUT OF BED, NONCOMPLIANT RESISTING ALL COMMANDS UNABLE TO SCALE PAIN NOTED DIAPER HAS FECES (PER [facility]: PT HAS C.DIFF)
--- NOTE | 2019-11-18 02:11 | NUR ---
100.1F (rectal) pt is aox0, kept trying to get out of bed RA at 97% noncompliant to commands
[2019-11-18] MEDS ORDERED: IV NORMAL SALINE 1000 ML BAG IV ONE (02:15)
[2019-11-18] MEDS ORDERED: HALOPERIDOL LACTATE 5 MG/1 ML VIAL IV ONE ×2 (02:15→03:00)
[2019-11-18] MEDS ORDERED: LORAZEPAM 2 MG/1 ML VIAL ONE ×2 (02:15→03:03)
[2019-11-18] MEDS ORDERED: HALOPERIDOL LACTATE 5 MG/1 ML VIAL ONE ×2 (02:15→03:02)
[2019-11-18] MEDS ORDERED: LORAZEPAM 2 MG/1 ML VIAL IV ONE ×2 (02:15→03:00)
--- NOTE | 2019-11-18 02:15 | NUR ---
Pt started attempting to kick two staff nurses and started spitting amongst teleradiologist and other staff Able to provide 2 point restraint (both lower extremities) skin reassessed visual checks every 15mins repositioned from right lateral to supine
[2019-11-18 02:38] LABS: BASOPHILS % (AUTO) 0.1 % (0.0-2.0); EOSINOPHILS # (AUTO) 0.1 K/uL (0.0-0.7); EOSINOPHILS % (AUTO) 0.7 % (0.0-7.0); HEMATOCRIT 29.3 % (36.7-47.1); HEMOGLOBIN 9.6 g/dL (12.5-16.3); LYMPHOCYTES # (AUTO) 1.3 K/uL (20.0-40.0); LYMPHOCYTES % (AUTO) 6.2 % (20.5-51.5); MEAN CORPUSCULAR HGB CONC 33 g/dL (32.5-36.3); MEAN CORPUSCULAR VOLUME 94.5 fL (73.0-96.2); MONOCYTES # (AUTO) 1.2 K/uL (2.0-10.0); MONOCYTES % (AUTO) 5.9 % (0.0-11.0); NEUTROPHILS # (AUTO) 18.1 K/uL (1.8-8.9); NEUTROPHILS % (AUTO) 87.1 % (38.5-71.5); PLATELET COUNT (AUTO) 335 K/uL (152-348); RED BLOOD CELL COUNT(AUTO) 3.11 MIL/uL (4.06-5.63); WHITE BLOOD COUNT (AUTO) 20.8 K/uL (3.6-10.2)
[2019-11-18 02:41] LABS: POTASSIUM 3.4 mmol/L (3.5-5.1)
[2019-11-18 02:46] LABS: BILIRUBIN,DIRECT 0.1 mg/dL (0.0-0.2); BILIRUBIN,TOTAL 0.4 mg/dL (0.2-1.0); TOTAL PROTEIN, SERUM 6.4 g/dL (6.4-8.2)
[2019-11-18 02:58] LABS: *BILIRUBIN,URIN NEGATIVE (NEGATIVE); *BLOOD, URINE 1+ (NEGATIVE); *CLARITY,URINE CLEAR (CLEAR); *COLOR,URINE YELLOW (YELLOW); *KETONES,URINE NEGATIVE (NEGATIVE); *UROBILINOGEN,URINE 0.2 E.U./dl (NORMAL); LEUKOCYTE ESTERASE ,URINE NEGATIVE (NEGATIVE); NITRITE, URINE NEGATIVE (NEGATIVE); UGLUCOSE NEGATIVE (NEGATIVE)
[2019-11-18 03:06] LABS: BACTERIA,URINE FEW /HPF (NONE SEEN); RBC,URINE 20-50 /HPF (0-3); SQUAMOUS EPITHELIAL CELL,UR MODERATE /HPF (NONE SEEN)
[2019-11-18 03:07] LABS: MUCUS,URINE FEW /LPF (0-FEW)
[2019-11-18] MEDS ORDERED: CEFTRIAXONE 1 G in IV DEXTROSE 5% 50 ML IV ONE (03:15)
--- NOTE | 2019-11-18 03:20 | NUR ---
Call for bed done Tele rm [phone]
--- NOTE | 2019-11-18 03:21 | NUR ---
JIMENEZ on the phone with Kendall Caputo to admit to tele Dx: Cystitis Belongings list co-signed
--- NOTE | 2019-11-18 03:21 | NUR ---
Reassessed. pt calmer after 2nd dose of medications Removed soft restraints fr both lower extremities
[2019-11-18] MEDS ORDERED: CEFTRIAXONE /D5W 50ML IVPB **ER PYXIS IV ONE (03:23)
[2019-11-18] MEDS ORDERED: ACETAMINOPHEN 325 MG TABLET PO PRN (03:30)
[2019-11-18] MEDS ORDERED: HYDROCODONE/APAP 5-325MG TABLET PO PRN (03:30)
[2019-11-18] MEDS ORDERED: MAGNESIUM HYDROXIDE 30 ML LIQUID UDC PO PRN (03:30)
[2019-11-18] MEDS ORDERED: ONDANSETRON 4 MG/2 ML VIAL IV PRN (03:30)
[2019-11-18] MEDS ORDERED: MORPHINE SULFATE 2 MG/1 ML DISP.SYRIN IV PRN (03:30)
[2019-11-18] MEDS ORDERED: CEFTRIAXONE 1 G in IV DEXTROSE 5% 50 ML IV SCH (03:30)
--- NOTE | 2019-11-18 03:36 | NUR ---
hand off and SBAR given to Rylie. Pt Dx: PYELONEPHRITIS UNDER S. KERZUMA PT IS NOW CALMER AND NOT TRYING TO GET OFF BED STILL AOX0 BUT TRACKING RA R UPPER ARM G18 INTACT WITH ABX INFUSING WELL MONITORED ACCORDINGLY FALL PREC ASP PREC POLST AT FULL CODE WITHOUT ADVANCE DIRECTIVES
--- NOTE | 2019-11-18 03:59 | NUR ---
transported pt to floor accompanied by JOSÉ MIGUEL LEDESMA
[2019-11-18 04:00] VITALS: BP 145/81
--- NOTE | 2019-11-18 04:35 | NUR ---
78 year old male received from er via gurney to room 321 for uti .pt is confused ,call light with in reach pt have fever 103 md made aware ,md notified for admission orders,
--- NOTE | 2019-11-18 04:39 | NUR ---
0330 dose of zosyen given in the er Addendum: 11/18/19 at 0442 by MIKE MALDONADO LVN 0330 dose of rocephin iv given in the er
[2019-11-18] MEDS: IV 1/2NS 1000 ML 1,000 ML IV PRN (04:47)
[2019-11-18] MEDS: ACETAMINOPHEN 650 MG SUPP.RECT RC PRN ×4 (08:47→23:34)
--- NOTE | 2019-11-18 09:00 | NUR ---
Received patient asleep in bed. AAOx1; Czech speaking. IV on BASILIO intact and patent with IVF running. Temperature of 100.6. Received orders for Tylenol suppository; orders carried out. Cooling measures continued. Will continue to observe and assess.
[2019-11-18 10:01] LABS: MAGNESIUM 1.8 mg/dL (1.8-2.4); PHOSPHOROUS 3.1 mg/dL (2.5-4.9)
[2019-11-18 11:38] VITALS: BP 120/68
[2019-11-18] MEDS ORDERED: POTASSIUM CHLORIDE 20 MEQ TAB.PRT.SR PO ONE (12:00)
--- NOTE | 2019-11-18 13:00 | NUR ---
Patient temperature 102.1 axillary. Received order for cooling blanket; orders carried out. Cooling measures continued. IV on BASILIO pulled out, new IV on R thumb reinserted. Will continue to monitor and assess.
[2019-11-18] MEDS: LORAZEPAM 2 MG/1 ML VIAL IV PRN ×2 (13:31→23:34)
[2019-11-18] MEDS ORDERED: DEXTROSE 50% 50 ML DISP.SYRIN IV PRN (15:00)
[2019-11-18 15:22] VITALS: BP 180/54
[2019-11-18] MEDS: POTASSIUM CHLORIDE 50 ML IV SCH ×2 (15:25→17:31)
[2019-11-18] MEDS ORDERED: Medication Not On Formulary EA (Saccharomyces Boulardii (Florastor) 250 MG) PO SCH (17:00)
[2019-11-18] MEDS ORDERED: DIVALPROEX 250 MG TABLET.DR PO SCH (17:00)
[2019-11-18] MEDS: DIVALPROEX 125 MG TABLET.DR PO SCH (18:03)
[2019-11-18] MEDS: VANCOMYCIN FOR PO/GT/NG USE PO SCH (18:05)
[2019-11-18] MEDS: MEMANTINE HCL 10 MG TABLET PO SCH (18:05)
[2019-11-18] MEDS: BLOOD SUGAR DIAGNOSTIC 1 EACH STRIP VI SCH ×2 (18:22→20:32)
[2019-11-18 18:32] VITALS: BP 141/55
--- NOTE | 2019-11-18 18:41 | NUR ---
Cooling measures observed and continued. Patient temperature continuously monitored through rectum. Temperature at this time 99.4, BP 141/55, HR: 92, SR on monitor. Will endorse care accordingly.
--- NOTE | 2019-11-18 20:00 | NUR ---
Received patient laying in bed. Shaking. A/O x O. Eyes open, patient is saying something in Macanese. O2 5L NC. Cooling measures in place, cooling mattress in place with rectal temp of 100.0. TELE is ST 128. IV on the right hand, patent and intact. Sitter at bedside. Fluids running. Bladder scan done, no signs of retaining urine. Noted skin tear on the left al. Safety initiated, call light within reach. Will closely monitor.
[2019-11-18] MEDS: QUETIAPINE FUMARATE 25 MG TABLET PO SCH (20:22)
[2019-11-18] MEDS: ATORVASTATIN 10 MG TABLET PO SCH (20:23)
[2019-11-18] MEDS: CULTURELLE CAPSULE PO SCH (20:23)
[2019-11-18] MEDS: Z GUARD REMEDY PASTE 57 GM TUBE TOP PRN (20:32)
[2019-11-18] MEDS ORDERED: DONEPEZIL 5 MG TABLET PO SCH (21:00)
[2019-11-18] MEDS ORDERED: SWABABLE VALVE TRANSFER SET EA MC ONE (21:36)
[2019-11-18] MEDS ORDERED: IOHEXOL 350 100 ML INFUS..BTL ONE (21:36)
[2019-11-18] MEDS ORDERED: IV NORMAL SALINE 250 ML IV ONE (21:37)
--- NOTE | 2019-11-18 21:40 | NUR ---
Telephone consent obtain by Daughter Andrea with RUPA Carpenter as a witness. CTA of the Chest. Will continue to monitor.
--- NOTE | 2019-11-18 21:59 | NUR ---
Patient was taken to radiology in stable condition for a CTA Chest. Will continue to monitor.
[2019-11-18] MEDS ORDERED: MEROPENEM 500 MG VIAL IV ONE (22:42)
[2019-11-18] MEDS: MEROPENEM 0.5 G in IV NORMAL SALINE 50 ML IV SCH (22:59)
--- NOTE | 2019-11-18 23:03 | NUR ---
Re-checked BS = 91. Will continue to monitor.
--- NOTE | 2019-11-18 23:30 | NUR ---
Temp up at 99.9. Tylenol suppository given. Patient is anxious, trying to get out of bed and pull out lines. Ativan given, will closely monitor.
--- NOTE | 2019-11-19 00:21 | NUR ---
Vanco PO not given because not available. Nurs Sup and mustanger aware. Will closely monitor.
--- NOTE | 2019-11-19 00:30 | NUR ---
Spoke to MARITZA Duarte about Vanco PO not available. He states that it can wait till tomorrow. Will continue to monitor.
[2019-11-19] MEDS: MEROPENEM 0.5 G in IV NORMAL SALINE 50 ML IV SCH ×3 (05:07→22:00)
--- NOTE | 2019-11-19 05:33 | NUR ---
Bladder scan done, 4 ml of urine only. Patient made 5 small-moderate BM, dark and soft. Will closely monitor.
--- NOTE | 2019-11-19 05:34 | NUR ---
Patient's temperature was difficult to maintained early on the shift. Proper cooling measures done. Patient slept intermittently t/o shift. PRN given for temperature and anxiety. Patient remains O2 3-5 L. Sating at 97%. Cooling measures halted because rectal temp is 98.6. TELE SR at 85. IVF and ABX infusing in the right upper arm, patent and intact. Remains in contact isolation for suspected re infection of CDIFF. Safety and comfort measures maintained t/o shift. Vital signs stable. All meds given as ordered. All needs met.
[2019-11-19 05:38] VITALS: BP 152/66
[2019-11-19] MEDS: VANCOMYCIN FOR PO/GT/NG USE PO SCH ×4 (06:00→17:06)
[2019-11-19] MEDS: BLOOD SUGAR DIAGNOSTIC 1 EACH STRIP VI SCH ×4 (06:39→22:59)
[2019-11-19 06:59] LABS: BASOPHILS % (AUTO) 0.1 % (0.0-2.0); EOSINOPHILS % (AUTO) 0.1 % (0.0-7.0); HEMOGLOBIN 9.8 g/dL (12.5-16.3); LYMPHOCYTES # (AUTO) 1.1 K/uL (20.0-40.0); MEAN CORPUSCULAR HEMOGLOBIN 31.1 uug (23.8-33.4); MEAN CORPUSCULAR HGB CONC 33 g/dL (32.5-36.3); MEAN CORPUSCULAR VOLUME 94.6 fL (73.0-96.2); MONOCYTES # (AUTO) 1.7 K/uL (2.0-10.0); MONOCYTES % (AUTO) 6.1 % (0.0-11.0); NEUTROPHILS # (AUTO) 24.6 K/uL (1.8-8.9); NEUTROPHILS % (AUTO) 89.7 % (38.5-71.5); PLATELET COUNT (AUTO) 282 K/uL (152-348); RED BLOOD CELL COUNT(AUTO) 3.17 MIL/uL (4.06-5.63); WHITE BLOOD COUNT (AUTO) 27.5 K/uL (3.6-10.2)
[2019-11-19 07:24] LABS: CREATININE 0.9 mg/dL (0.6-1.3); MAGNESIUM 1.6 mg/dL (1.8-2.4)
[2019-11-19] MEDS: FINASTERIDE 5 MG TABLET PO SCH (08:51)
[2019-11-19] MEDS: MEMANTINE HCL 10 MG TABLET PO SCH ×2 (08:52→16:58)
[2019-11-19] MEDS: CULTURELLE CAPSULE PO SCH ×2 (08:52→22:00)
[2019-11-19] MEDS: ZINC SULFATE 220 MG CAPSULE PO SCH (08:52)
[2019-11-19] MEDS: CLOPIDOGREL 75 MG TABLET PO SCH (08:52)
[2019-11-19] MEDS: FERROUS SULFATE 325 MG TABEC PO SCH (08:52)
[2019-11-19] MEDS: DIVALPROEX 125 MG TABLET.DR PO SCH ×2 (08:52→16:58)
[2019-11-19] MEDS: ASCORBIC ACID 500 MG TABLET PO SCH (08:52)
[2019-11-19] MEDS: MULTIVIT, IRON, MIN NO. 8, FA TABLET PO SCH (08:52)
[2019-11-19] MEDS: OXYBUTYNIN XL 5 MG TABSR PO SCH (08:53)
[2019-11-19] MEDS ORDERED: Medication Not On Formulary EA (Ascorbic Acid (Vitamin C) 500 MG) PO SCH (09:00)
[2019-11-19] MEDS ORDERED: Medication Not On Formulary EA (Multivitamins W-Minerals (Multivitamin With Minerals) 1 PO SCH (09:00)
[2019-11-19] MEDS ORDERED: Medication Not On Formulary EA (Mirabegron (Myrbetriq) 50 MG) PO SCH (09:00)
[2019-11-19] MEDS: VANCOMYCIN IV 1,000 MG in IV DEXTROSE 5% 250 ML IV SCH (09:04)
[2019-11-19] MEDS: ENALAPRIL 10 MG TABLET PO SCH (09:04)
[2019-11-19] MEDS: IV 1/2NS 1000 ML 1,000 ML IV PRN (09:07)
--- NOTE | 2019-11-19 09:37 | NUR ---
CLINICAL PHARMACY NOTE:VANCOMYCIN DOSING S: To start vancomycin dosing on this 78 y/o male patient for suspected infection " per MD note- severe sepsis" O: Temp 98.6 BUN/Scr 22/0.9 WBC 27.5 wt 59 kg ht 172.7 cm Plan Will start vanco 1000mg IVPB q23h for predicted vanco trough level of 15 mcg/ml at steady state. 1st dose today at 0900. Plan to check vanco trough level before 4th dose (not yet ordered). Will monitor renal function & adjust the dose if needed. Will follow
--- NOTE | 2019-11-19 11:43 | NUR ---
1200 po med not given pt very lethargic unable to swallow coughing.
[2019-11-19] MEDS: MAGNESIUM SULFATE/D5W 100 ML IV SCH ×2 (12:00→13:09)
[2019-11-19] MEDS: QUETIAPINE FUMARATE 25 MG TABLET PO SCH ×2 (13:00→22:00)
--- NOTE | 2019-11-19 13:10 | NUR ---
1300 po medications not administered patient lethargic, coughing with water sips awaiting swallow eval.
--- NOTE | 2019-11-19 16:42 | NUR ---
Patient care endorse to rn. Youngblood who will continue with care plan.
[2019-11-19 19:40] VITALS: BP 169/70
[2019-11-19] MEDS: LORAZEPAM 2 MG/1 ML VIAL IV PRN (21:10)
[2019-11-19] MEDS: ATORVASTATIN 10 MG TABLET PO SCH (22:00)
[2019-11-19] MEDS: MUPIROCIN 2% OINT 22 GM TUBE NS SCH (23:07)
[2019-11-19] MEDS: Z GUARD REMEDY PASTE 57 GM TUBE TOP PRN (23:08)
[2019-11-20] MEDS: VANCOMYCIN FOR PO/GT/NG USE PO SCH ×4 (00:45→18:11)
[2019-11-20] MEDS: IV 1/2NS 1000 ML 1,000 ML IV PRN ×2 (02:21→19:07)
[2019-11-20 02:22] VITALS: BP 176/86
--- NOTE | 2019-11-20 04:00 | NUR ---
patients SBP is trending up to 178. Dr Wolfe was notified. New one time order for Vasotec 1.25 IV.
[2019-11-20] MEDS ORDERED: ENALAPRILAT DIHYDRATE 1.25 MG/1 ML VIAL IV ONE (04:30)
[2019-11-20] MEDS: MEROPENEM 0.5 G in IV NORMAL SALINE 50 ML IV SCH ×3 (05:47→21:33)
[2019-11-20 06:07] VITALS: BP 146/85
--- NOTE | 2019-11-20 06:15 | NUR ---
Vasotec IV was not given since BP is trending down to 148/85. Will endorse to day shift.
[2019-11-20 06:24] LABS: BASOPHILS % (AUTO) 0.2 % (0.0-2.0); EOSINOPHILS # (AUTO) 0.5 K/uL (0.0-0.7); EOSINOPHILS % (AUTO) 2.8 % (0.0-7.0); HEMATOCRIT 29.9 % (36.7-47.1); HEMOGLOBIN 9.8 g/dL (12.5-16.3); LYMPHOCYTES # (AUTO) 0.8 K/uL (20.0-40.0); LYMPHOCYTES % (AUTO) 5.2 % (20.5-51.5); MEAN CORPUSCULAR HEMOGLOBIN 30.6 uug (23.8-33.4); MEAN CORPUSCULAR HGB CONC 33 g/dL (32.5-36.3); MEAN CORPUSCULAR VOLUME 93.8 fL (73.0-96.2); MONOCYTES % (AUTO) 6.2 % (0.0-11.0); NEUTROPHILS % (AUTO) 85.6 % (38.5-71.5); PLATELET COUNT (AUTO) 282 K/uL (152-348); RED BLOOD CELL COUNT(AUTO) 3.19 MIL/uL (4.06-5.63); WHITE BLOOD COUNT (AUTO) 16.3 K/uL (3.6-10.2)
[2019-11-20 06:41] LABS: CREATININE 0.8 mg/dL (0.6-1.3); MAGNESIUM 1.9 mg/dL (1.8-2.4); PHOSPHOROUS 2.1 mg/dL (2.5-4.9); POTASSIUM 3.3 mmol/L (3.5-5.1)
[2019-11-20] MEDS: BLOOD SUGAR DIAGNOSTIC 1 EACH STRIP VI SCH ×4 (07:18→22:59)
--- NOTE | 2019-11-20 08:00 | NUR ---
Patient in bed, intermittent sleeping. No signs of distress noted. No SOB. No signs of Pain or discomfort. Afebrile. No Contact isolation for MRSA nares, Proper PPE strictly Observed. Kept clean and comfortable. Will continue to monitor.
[2019-11-20] MEDS: VANCOMYCIN IV 1,000 MG in IV DEXTROSE 5% 250 ML IV SCH (08:17)
[2019-11-20] MEDS: DIVALPROEX 125 MG TABLET.DR PO SCH ×2 (09:28→17:00)
[2019-11-20] MEDS: OXYBUTYNIN XL 5 MG TABSR PO SCH (09:28)
[2019-11-20] MEDS: CULTURELLE CAPSULE PO SCH ×2 (09:28→21:00)
[2019-11-20] MEDS: MUPIROCIN 2% OINT 22 GM TUBE NS SCH ×2 (09:28→21:00)
[2019-11-20] MEDS: FERROUS SULFATE 325 MG TABEC PO SCH (09:28)
[2019-11-20] MEDS: ENALAPRIL 10 MG TABLET PO SCH (09:29)
[2019-11-20] MEDS: FINASTERIDE 5 MG TABLET PO SCH (09:29)
[2019-11-20] MEDS: MULTIVIT, IRON, MIN NO. 8, FA TABLET PO SCH (09:29)
[2019-11-20] MEDS: MEMANTINE HCL 10 MG TABLET PO SCH ×2 (09:29→17:00)
[2019-11-20] MEDS: ZINC SULFATE 220 MG CAPSULE PO SCH (09:29)
[2019-11-20] MEDS: ASCORBIC ACID 500 MG TABLET PO SCH (09:29)
[2019-11-20] MEDS: CLOPIDOGREL 75 MG TABLET PO SCH (09:29)
[2019-11-20 11:35] VITALS: BP 148/78
--- NOTE | 2019-11-20 12:33 | NUR ---
CLINICAL PHARMACY NOTE:VANCOMYCIN DOSING S: To Continue vancomycin dosing on this 78 y/o male patient for severe sepsis. O: Temp 99.1 BUN/Scr 17/0.8 WBC 16.3 wt 59 kg ht 172.7 cm Plan Will continue vanco 1000mg IVPB q23h for predicted vanco trough level of 15 mcg/ml at steady state. 2nd dose given today at 0800. Plan to check vanco trough level before 4th dose (not yet ordered). Will monitor renal function & adjust the dose if needed. Will follow
[2019-11-20] MEDS: QUETIAPINE FUMARATE 25 MG TABLET PO SCH ×2 (13:14→21:37)
[2019-11-20] MEDS ORDERED: POTASSIUM CHLORIDE 20 MEQ POWDER PACKET PO ONE (14:45)
[2019-11-20] MEDS ORDERED: NEUTRA PHOS PACKET PO ONE (16:00)
--- NOTE | 2019-11-20 16:00 | NUR ---
Patient was evaluated by ST, and per ST Patient failed the swallowing test, with NGT recommendation.
[2019-11-20] MEDS: ACETAMINOPHEN 650 MG SUPP.RECT RC PRN (16:05)
--- NOTE | 2019-11-20 16:15 | NUR ---
Family Andrea refused patient to have NGT.
[2019-11-20 16:47] VITALS: BP 120/78
--- NOTE | 2019-11-20 18:14 | NUR ---
Patient in bed, intermittently sleeping. No signs of distress noted. No SOB. No signs of Pain or discomfort. with episode of fever of 101.7F, tylenol supp given effective after 45 minutes, temperature went down to 97.8F. Family at bedside, explained that patient is NPO and failed with ST evaluation, family insist patient to eat, family feed the patient. MD made aware. All needs attended. kept clean and comfortable. Will endorse to Oncoming Nurse.
[2019-11-20 20:00] VITALS: BP 108/57
[2019-11-20] MEDS: ATORVASTATIN 10 MG TABLET PO SCH (22:12)
[2019-11-20] MEDS: INSULIN REGULAR, HUMAN 300 UNIT/3 ML VIAL SQ PRN (23:23)
--- NOTE | 2019-11-20 23:23 | NUR ---
insulin held, blood glucose 141, patient is NPO post swallow eval. No dextrose in fluids other than Abx Merem in 50ml D5.
[2019-11-21] MEDS: VANCOMYCIN FOR PO/GT/NG USE PO SCH ×4 (00:50→17:34)
[2019-11-21 05:41] LABS: CREATININE 0.8 mg/dL (0.6-1.3); PHOSPHOROUS 2.1 mg/dL (2.5-4.9); POTASSIUM 3.1 mmol/L (3.5-5.1)
[2019-11-21 06:11] VITALS: BP 134/72
[2019-11-21] MEDS: VANCOMYCIN IV 1,000 MG in IV DEXTROSE 5% 250 ML IV SCH (06:54)
[2019-11-21] MEDS: MEROPENEM 0.5 G in IV NORMAL SALINE 50 ML IV SCH ×3 (06:54→21:08)
[2019-11-21] MEDS: IV 1/2NS 1000 ML 1,000 ML IV PRN ×2 (06:54→21:08)
--- NOTE | 2019-11-21 07:35 | NUR ---
Received patient in bed, awake and responsive. No signs of distress noted. No SOB. No signs of Pain or discomfort. remains on Contact Isolation for MRSA Nares, Latest Blood sugar this is 113. Patient with 1:1 sitter for safety. Kept clean and comfortable. Will continue to monitor.
[2019-11-21] MEDS: BLOOD SUGAR DIAGNOSTIC 1 EACH STRIP VI SCH ×4 (07:37→22:32)
[2019-11-21] MEDS: MUPIROCIN 2% OINT 22 GM TUBE NS SCH ×2 (08:55→21:27)
[2019-11-21] MEDS: DIVALPROEX 125 MG TABLET.DR PO SCH ×2 (09:12→16:36)
[2019-11-21] MEDS: CULTURELLE CAPSULE PO SCH ×2 (09:12→21:07)
[2019-11-21] MEDS: MEMANTINE HCL 10 MG TABLET PO SCH ×2 (09:13→16:36)
[2019-11-21] MEDS: MULTIVIT, IRON, MIN NO. 8, FA TABLET PO SCH (09:13)
[2019-11-21] MEDS: FERROUS SULFATE 325 MG TABEC PO SCH (09:13)
[2019-11-21] MEDS: ENALAPRIL 10 MG TABLET PO SCH (09:13)
[2019-11-21] MEDS: OXYBUTYNIN XL 5 MG TABSR PO SCH (09:13)
[2019-11-21] MEDS: CLOPIDOGREL 75 MG TABLET PO SCH (09:13)
[2019-11-21] MEDS: ASCORBIC ACID 500 MG TABLET PO SCH (09:13)
[2019-11-21] MEDS: ZINC SULFATE 220 MG CAPSULE PO SCH (09:13)
[2019-11-21] MEDS: FINASTERIDE 5 MG TABLET PO SCH (09:13)
[2019-11-21 09:42] VITALS: BP 129/69
--- NOTE | 2019-11-21 10:15 | NUR ---
RP Daughter is at bedside and fed the patient with yogurt and mashed potato, explained risk of Aspiration to Family. Family insist to feed the patient. made aware.
[2019-11-21] MEDS: QUETIAPINE FUMARATE 25 MG TABLET PO SCH ×2 (12:24→21:07)
[2019-11-21 12:25] VITALS: BP 139/72
--- NOTE | 2019-11-21 13:14 | NUR ---
CLINICAL PHARMACY NOTE:VANCOMYCIN DOSING S: To Continue vancomycin dosing on this 78 y/o male patient for severe sepsis. O: Temp 98.6 BUN/Scr 14/0.8 WBC 16.3(11/21) wt 59 kg ht 172.7 cm Plan Will continue vanco 1000mg IVPB q23h for predicted vanco trough level of 15 mcg/ml at steady state. 3rd dose given today at 0700. Plan to check vanco trough level before 4th dose (ordered for tomorrow at 0530-will endorse nurse to hold for over 20). Will monitor renal function & adjust the dose if needed. Will follow
[2019-11-21] MEDS ORDERED: POTASSIUM CHLORIDE 20 MEQ POWDER PACKET PO ONE (14:45)
--- NOTE | 2019-11-21 15:00 | NUR ---
Patient in bed, awake and alert, took all AM Oral medications without coughing, BATHING SUIT MAKER Benjamin made aware with Order to put back on CCHO pureed diet.
[2019-11-21] MEDS ORDERED: NEUTRA PHOS PACKET PO ONE (15:45)
[2019-11-21 17:06] VITALS: BP_SYST 106; BP_SYST 139; BP_DIAS 60; BP_DIAS 72
--- NOTE | 2019-11-21 17:28 | NUR ---
Family refused NGT for feeding. While patient was NPO the family brought Regular food from outside and fed the patient. This was relayed by the RN. New diet Rx for evening meal; CCHO pureed. Blood glucose wnl. Weight is stable. Addendum: 11/21/19 at [address] Amended: Links added.
[2019-11-21] MEDS: INSULIN REGULAR, HUMAN 300 UNIT/3 ML VIAL SQ PRN (17:29)
--- NOTE | 2019-11-21 18:35 | NUR ---
Patient in bed, awake and verbally responsive with daughter at bedside. No signs of distress noted. No SOB. No complain of Pain or discomfort. Afebrile. No episode of fever throughout the shift. Patient is on Pureed CCHO diet, tolerated well. No coughing while eating. All due medication given as ordered. On 1:1 sitter for safety, Remains on Isolation for MRSA Nares. Kept clean and comfortable. Will endorse to Oncoming Nurse.
[2019-11-21 18:47] VITALS: BP 106/60
[2019-11-21] MEDS: ATORVASTATIN 10 MG TABLET PO SCH (21:07)
[2019-11-22] MEDS: VANCOMYCIN FOR PO/GT/NG USE PO SCH ×4 (02:31→18:45)
[2019-11-22] MEDS: LORAZEPAM 2 MG/1 ML VIAL IV PRN (03:01)
[2019-11-22 05:51] LABS: CREATININE 0.8 mg/dL (0.6-1.3); MAGNESIUM 1.9 mg/dL (1.8-2.4); PHOSPHOROUS 2.2 mg/dL (2.5-4.9); POTASSIUM 3.4 mmol/L (3.5-5.1)
[2019-11-22 06:08] LABS: BASOPHILS % (AUTO) 0.3 % (0.0-2.0); EOSINOPHILS # (AUTO) 0.5 K/uL (0.0-0.7); EOSINOPHILS % (AUTO) 4.6 % (0.0-7.0); HEMATOCRIT 26.7 % (36.7-47.1); HEMOGLOBIN 8.9 g/dL (12.5-16.3); LYMPHOCYTES # (AUTO) 1.5 K/uL (20.0-40.0); LYMPHOCYTES % (AUTO) 14.9 % (20.5-51.5); MEAN CORPUSCULAR HGB CONC 33 g/dL (32.5-36.3); MONOCYTES # (AUTO) 0.9 K/uL (2.0-10.0); NEUTROPHILS # (AUTO) 7.2 K/uL (1.8-8.9); NEUTROPHILS % (AUTO) 71.2 % (38.5-71.5); PLATELET COUNT (AUTO) 273 K/uL (152-348); RED BLOOD CELL COUNT(AUTO) 2.88 MIL/uL (4.06-5.63); WHITE BLOOD COUNT (AUTO) 10.1 K/uL (3.6-10.2)
[2019-11-22] MEDS: VANCOMYCIN IV 1,000 MG in IV DEXTROSE 5% 250 ML IV SCH (06:25)
[2019-11-22] MEDS: MEROPENEM 0.5 G in IV NORMAL SALINE 50 ML IV SCH ×3 (06:25→21:16)
[2019-11-22] MEDS: BLOOD SUGAR DIAGNOSTIC 1 EACH STRIP VI SCH ×4 (06:55→21:16)
[2019-11-22] MEDS: MUPIROCIN 2% OINT 22 GM TUBE NS SCH ×2 (09:00→20:59)
[2019-11-22] MEDS: DIVALPROEX 125 MG TABLET.DR PO SCH (09:26)
[2019-11-22] MEDS: OXYBUTYNIN XL 5 MG TABSR PO SCH (09:26)
[2019-11-22] MEDS: CULTURELLE CAPSULE PO SCH ×2 (09:26→20:59)
[2019-11-22] MEDS: FERROUS SULFATE 325 MG TABEC PO SCH (09:31)
[2019-11-22] MEDS: CLOPIDOGREL 75 MG TABLET PO SCH (09:31)
[2019-11-22] MEDS: FINASTERIDE 5 MG TABLET PO SCH (09:31)
[2019-11-22] MEDS: MEMANTINE HCL 10 MG TABLET PO SCH ×2 (09:31→18:45)
[2019-11-22] MEDS: MULTIVIT, IRON, MIN NO. 8, FA TABLET PO SCH (09:32)
[2019-11-22] MEDS: ENALAPRIL 10 MG TABLET PO SCH (09:33)
[2019-11-22] MEDS: ZINC SULFATE 220 MG CAPSULE PO SCH (09:33)
[2019-11-22] MEDS: ASCORBIC ACID 500 MG TABLET PO SCH (09:33)
--- NOTE | 2019-11-22 11:08 | NUR ---
CLINICAL PHARMACY NOTE:VANCOMYCIN DOSING S: To Continue vancomycin dosing on this 78 y/o male patient for severe sepsis. O: Temp 98.3 BUN/Scr 15/0.8 WBC 16.3(11/21) wt 59 kg ht 172.7 cm Trough 11/22@0515: 6.8 Plan Based on today's trough, will readjusted vanco regimen to 1gm q14hr for new estimated trough of 15.7, second dose tonight at 1999. Will order trough before 4th scheduled dose (not ordered yet). Will continue to follow
[2019-11-22 11:13] VITALS: BP 133/64
[2019-11-22] MEDS: QUETIAPINE FUMARATE 25 MG TABLET PO SCH ×2 (13:17→20:59)
[2019-11-22] MEDS: VALPROIC ACID 250 MG/5 ML LIQUID UDC PO SCH ×2 (13:18→19:03)
[2019-11-22] MEDS: INSULIN REGULAR, HUMAN 300 UNIT/3 ML VIAL SQ PRN (13:21)
[2019-11-22] MEDS ORDERED: POTASSIUM CHLORIDE 20 MEQ POWDER PACKET GT ONE (13:45)
[2019-11-22 15:26] VITALS: BP 131/67
[2019-11-22] MEDS ORDERED: NEUTRA PHOS PACKET PO ONE (15:30)
[2019-11-22 19:51] VITALS: BP 145/75
[2019-11-22] MEDS ORDERED: VANCOMYCIN IV 1,000 MG in IV DEXTROSE 5% 250 ML IV SCH (20:00)
[2019-11-22] MEDS: ATORVASTATIN 10 MG TABLET PO SCH (20:59)
[2019-11-23] MEDS: VANCOMYCIN FOR PO/GT/NG USE PO SCH ×4 (01:51→18:05)
[2019-11-23 05:21] VITALS: BP 141/61
[2019-11-23] MEDS: MEROPENEM 0.5 G in IV NORMAL SALINE 50 ML IV SCH (06:23)
[2019-11-23] MEDS: BLOOD SUGAR DIAGNOSTIC 1 EACH STRIP VI SCH ×3 (06:31→16:17)
[2019-11-23 06:46] LABS: CREATININE 0.7 mg/dL (0.6-1.3); MAGNESIUM 1.7 mg/dL (1.8-2.4); PHOSPHOROUS 2.7 mg/dL (2.5-4.9); POTASSIUM 3.4 mmol/L (3.5-5.1)
[2019-11-23 07:08] LABS: BASOPHILS # (AUTO) 0.1 K/uL (0.0-8.0); BASOPHILS % (AUTO) 0.6 % (0.0-2.0); EOSINOPHILS # (AUTO) 0.4 K/uL (0.0-0.7); EOSINOPHILS % (AUTO) 3.6 % (0.0-7.0); HEMATOCRIT 28.5 % (36.7-47.1); HEMOGLOBIN 9.7 g/dL (12.5-16.3); LYMPHOCYTES # (AUTO) 1.9 K/uL (20.0-40.0); LYMPHOCYTES % (AUTO) 17.4 % (20.5-51.5); MEAN CORPUSCULAR HEMOGLOBIN 31.5 uug (23.8-33.4); MEAN CORPUSCULAR HGB CONC 34 g/dL (32.5-36.3); MONOCYTES # (AUTO) 0.9 K/uL (2.0-10.0); MONOCYTES % (AUTO) 8.3 % (0.0-11.0); NEUTROPHILS # (AUTO) 7.5 K/uL (1.8-8.9); NEUTROPHILS % (AUTO) 70.1 % (38.5-71.5); PLATELET COUNT (AUTO) 329 K/uL (152-348); RED BLOOD CELL COUNT(AUTO) 3.06 MIL/uL (4.06-5.63); WHITE BLOOD COUNT (AUTO) 10.7 K/uL (3.6-10.2)
--- NOTE | 2019-11-23 07:30 | NUR ---
Received patient awake in bed with 1:1 sitter at bedside. Patient is agitated , restless and trying to get out of bed. Frequent reorientation needed. Safety and comfort provided. will continue to monitor.
[2019-11-23 08:00] VITALS: BP 140/72
[2019-11-23] MEDS: CULTURELLE CAPSULE PO SCH ×2 (08:29→20:55)
[2019-11-23] MEDS: ENALAPRIL 10 MG TABLET PO SCH (08:29)
[2019-11-23] MEDS: OXYBUTYNIN XL 5 MG TABSR PO SCH (08:29)
[2019-11-23] MEDS: CLOPIDOGREL 75 MG TABLET PO SCH (08:29)
[2019-11-23] MEDS: FINASTERIDE 5 MG TABLET PO SCH (08:29)
[2019-11-23] MEDS: FERROUS SULFATE 325 MG TABEC PO SCH (08:30)
[2019-11-23] MEDS: MULTIVIT, IRON, MIN NO. 8, FA TABLET PO SCH (08:30)
[2019-11-23] MEDS: ASCORBIC ACID 500 MG TABLET PO SCH (08:30)
[2019-11-23] MEDS: ZINC SULFATE 220 MG CAPSULE PO SCH (08:30)
[2019-11-23] MEDS: MEMANTINE HCL 10 MG TABLET PO SCH ×2 (08:32→16:24)
[2019-11-23] MEDS: LORAZEPAM 2 MG/1 ML VIAL IV PRN (08:33)
[2019-11-23] MEDS: VALPROIC ACID 250 MG/5 ML LIQUID UDC PO SCH ×2 (08:34→16:26)
[2019-11-23] MEDS: MUPIROCIN 2% OINT 22 GM TUBE NS SCH ×2 (08:41→20:56)
[2019-11-23] MEDS ORDERED: ERGOCALCIFEROL 50,000 UNIT CAPSULE PO SCH (09:00)
[2019-11-23 12:00] VITALS: BP 150/87
[2019-11-23] MEDS: MAGNESIUM SULFATE/D5W 100 ML IV SCH ×2 (13:07→14:10)
[2019-11-23] MEDS: POTASSIUM CHLORIDE 50 ML IV SCH ×4 (13:07→16:07)
[2019-11-23] MEDS: QUETIAPINE FUMARATE 25 MG TABLET PO SCH ×2 (13:07→20:55)
[2019-11-23] MEDS: IV 1/2NS 1000 ML 1,000 ML IV PRN (13:24)
[2019-11-23 15:50] VITALS: BP 100/67
[2019-11-23 20:00] VITALS: BP 108/48
[2019-11-23] MEDS: ATORVASTATIN 10 MG TABLET PO SCH (20:55)
--- NOTE | 2019-11-23 21:05 | NUR ---
Discharge process finished. All education done by AM nurse to daughter. Aware of DC orders by . Report given to Anette VALDEZ. All due medications given. [place] 5/325 mg given also for signs of pain. Tolerated well. Pt left in stable condition with [address] [facility] to [facility].
== END 2019-11-23 21:13 | DRG 871 ==
LOC: ER 01:44 → TELE3 03:15 → TELE-TD3 20:10 → TELE3 11-19 12:14 → MEDSURG3 11-20 11:11
PROVIDERS: ADMIT Student in an Organized Health Care Education/Training Program; ATTEND Hospitalist
DX: A41.4 Sepsis due to anaerobes (principal); G93.41 Metabolic encephalopathy; A04.72 Enterocolitis due to Clostridium difficile, not specified as recurrent; N12 Tubulo-interstitial nephritis, not specified as acute or chronic; E44.0 Moderate protein-calorie malnutrition; Z68.1 Body mass index [BMI] 19.9 or less, adult; F02.81 Dementia in other diseases classified elsewhere, unspecified severity, with behavioral disturbance; R65.20 Severe sepsis without septic shock; E78.5 Hyperlipidemia, unspecified; E11.9 Type 2 diabetes mellitus without complications; E87.6 Hypokalemia; Z86.73 Personal history of transient ischemic attack (TIA), and cerebral infarction without residual deficits; E86.0 Dehydration; Z22.322 Carrier or suspected carrier of Methicillin resistant Staphylococcus aureus; E83.39 Other disorders of phosphorus metabolism; G30.9 Alzheimer's disease, unspecified; Z91.83 Wandering in diseases classified elsewhere; F10.11 Alcohol abuse, in remission; N40.0 Benign prostatic hyperplasia without lower urinary tract symptoms; Z79.02 Long term (current) use of antithrombotics/antiplatelets; I11.9 Hypertensive heart disease without heart failure; E83.42 Hypomagnesemia; D64.9 Anemia, unspecified
CPT/HCPCS: 36415; 70030-TC; 71045; 80164; 83605; 83690; 83735; 84100; 85025; 85730; 87040; 87086; 87400; 93005; A4663; C1758; G0378; J0696; J1630; J1815; J2060; J2185; J2270; J3370; J3475; J3480; J3490; J7030; J7040; J7050; J7060; Q9967

== ENCOUNTER 2020-02-12 10:43 | Emergency (ER) | payer MEDICARE, OTHER ==
[~2020-02-12] VITALS: Ht 175.3 cm; Wt 55.3 kg
[~2020-02-12 10:43] MED LIST changes: +ACET-2154 PO; +ASCO500C18 PO; +ATOR10TA PO; -ATOR40TA PO; +ERGO500040 PO; +FERR325T23 PO; +MULT-213 PO; +MUPI22OI2 NS; +POTA10CA43 PO; +SACC250C PO; -SITA100T PO; +VANC500V PO; +ZINC1CAP2 PO; +ZOLP10TA6 PO
--- NOTE | 2020-02-12 11:07 | NUR ---
Patient's daughter can not recall the home meds' names & dosages@this time. She left ER for her own MD appt & will come back to the hospital as soon as possible.
[2020-02-12] MEDS ORDERED: NEOMY/BACITRA/POLYMYXIN B OINT UD PACKET TP ONE ×2 (11:28→11:30)
[2020-02-12] MEDS ORDERED: IV NORMAL SALINE 1000 ML BAG IV ONE (11:30)
[2020-02-12 11:55] LABS: CREATININE 1.1 mg/dL (0.6-1.3); POTASSIUM 4.3 mmol/L (3.5-5.1)
[2020-02-12 12:15] LABS: BILIRUBIN,DIRECT 0.1 mg/dL (0.0-0.2); BILIRUBIN,TOTAL 0.4 mg/dL (0.2-1.0)
[2020-02-12] MEDS ORDERED: ATOR40TA PO (12:19)
[2020-02-12] MEDS ORDERED: DIVA250T4 PO (12:20)
[2020-02-12 12:23] LABS: BASOPHILS % (AUTO) 0.5 % (0.0-2.0); EOSINOPHILS # (AUTO) 0.5 K/uL (0.0-0.7); EOSINOPHILS % (AUTO) 5.5 % (0.0-7.0); HEMATOCRIT 30.6 % (36.7-47.1); HEMOGLOBIN 10.2 g/dL (12.5-16.3); LYMPHOCYTES # (AUTO) 1.3 K/uL (20.0-40.0); LYMPHOCYTES % (AUTO) 14.9 % (20.5-51.5); MEAN CORPUSCULAR HEMOGLOBIN 31.1 uug (23.8-33.4); MEAN CORPUSCULAR HGB CONC 33 g/dL (32.5-36.3); MEAN CORPUSCULAR VOLUME 93.2 fL (73.0-96.2); MONOCYTES # (AUTO) 0.8 K/uL (2.0-10.0); MONOCYTES % (AUTO) 9.3 % (0.0-11.0); NEUTROPHILS % (AUTO) 69.8 % (38.5-71.5); PLATELET COUNT (AUTO) 161 K/uL (152-348); RED BLOOD CELL COUNT(AUTO) 3.28 MIL/uL (4.06-5.63); WHITE BLOOD COUNT (AUTO) 8.7 K/uL (3.6-10.2)
[2020-02-12] MEDS ORDERED: QUET25TA PO (12:23)
[2020-02-12] MEDS ORDERED: ENAL10TA75 PO (12:25)
--- NOTE | 2020-02-12 12:26 | NUR ---
Patient's daughter came back & gave list of home medicines. Initial medication reconcilation was done. Admitting MD/ANIMAL CHIROPRACTOR to reconcile home medicines.
[2020-02-12] MEDS ORDERED: METF-441 PO (12:33)
[2020-02-12] MEDS ORDERED: SITA100T PO (12:34)
[2020-02-12] MEDS ORDERED: FINA5TAB3 PO (12:35)
[2020-02-12 12:50] LABS: *BILIRUBIN,URIN NEGATIVE (NEGATIVE); *BLOOD, URINE NEGATIVE (NEGATIVE); *CLARITY,URINE CLEAR (CLEAR); *COLOR,URINE YELLOW (YELLOW); *KETONES,URINE TRACE (NEGATIVE); *UROBILINOGEN,URINE 0.2 E.U./dl (NORMAL); LEUKOCYTE ESTERASE ,URINE NEGATIVE (NEGATIVE); NITRITE, URINE NEGATIVE (NEGATIVE); PH,URINE 6.5 (5.0-8.0); UGLUCOSE NEGATIVE (NEGATIVE)
[2020-02-12 12:59] LABS: RBC,URINE 0-3 /HPF (0-3)
[2020-02-12] MEDS ORDERED: LORAZEPAM 2 MG/1 ML VIAL ONE (12:59)
[2020-02-12 13:00] LABS: CREATINE KINASE, TOTAL 253 U/L (39-308)
[2020-02-12] MEDS ORDERED: LORAZEPAM 2 MG/1 ML VIAL IV ONE (13:00)
[2020-02-12 13:03] LABS: BACTERIA,URINE NONE SEEN /HPF (NONE SEEN); SQUAMOUS EPITHELIAL CELL,UR FEW /HPF (NONE SEEN); WBC,URINE 0-3 /HPF (0-3)
[2020-02-12 13:04] LABS: MUCUS,URINE FEW /LPF (0-FEW)
--- NOTE | 2020-02-12 13:25 | NUR ---
PATIENT IN BED PROVIDED QUIET AND RELAXING ENVIRONMENT DONE , REORIENTATION DONE PATIENT FALL RISK TRYING TO GET OUT OF BED NURSE AT BEDSIDE FOR SAFETY.
[2020-02-12] MEDS ORDERED: QUETIAPINE FUMARATE 25 MG TABLET PO ONE (13:30)
[2020-02-12] MEDS ORDERED: QUETIAPINE FUMARATE 25 MG TABLET ONE (13:36)
--- NOTE | 2020-02-12 13:57 | NUR ---
ALFRED VALDZE AT BEDSIDE 1:1 SITTER PATIENT SAFETY.
--- NOTE | 2020-02-12 15:47 | NUR ---
Patient is resting comfortably on gurney with eyes closed in ER room 5A with nursing communications equipment supervisor Inessa as 1:1 sitter, still for disposition (admission vs discharge) by Dr Frias. Lights dimmed, reorientation prn done. Comfort and safety measures maintained.
--- NOTE | 2020-02-12 16:01 | NUR ---
Patient is for discharge per Dr Frias, pending daughter's arrival for pick -up. Dr Frias said that she will call patient's daughter & update the family.
--- NOTE | 2020-02-12 16:10 | NUR ---
1:1 higinio Roa [email or web address].
--- NOTE | 2020-02-12 17:21 | NUR ---
Patient discharged to home in stable condition. Written and verbal after care instructions given. Patient and daughter verbalizes understanding of instructions. Stressed follow up or return to ER for worsening s/s. IV removed. Catheter intact and site benign. Pressure and 4x4 gauze applied to site. No bleeding noted.
[2020-02-12 17:23] VITALS: BP 136/78
== END 2020-02-12 17:26 | disposition home or self-care (01) ==
LOC: ER 10:43
DX: S00.81XA Abrasion of other part of head, initial encounter (principal); W18.30XA Fall on same level, unspecified, initial encounter; Y92.015 Private garage of single-family (private) house as the place of occurrence of the external cause; F03.90 Unspecified dementia, unspecified severity, without behavioral disturbance, psychotic disturbance, mood disturbance, and anxiety; Z91.83 Wandering in diseases classified elsewhere; E78.5 Hyperlipidemia, unspecified; E11.9 Type 2 diabetes mellitus without complications; Z79.84 Long term (current) use of oral hypoglycemic drugs; D64.9 Anemia, unspecified; R94.31 Abnormal electrocardiogram [ECG] [EKG]; I11.9 Hypertensive heart disease without heart failure; M50.221 Other cervical disc displacement at C4-C5 level; M48.02 Spinal stenosis, cervical region; I67.2 Cerebral atherosclerosis; R40.2242 Coma scale, best verbal response, confused conversation, at arrival to emergency department; R40.2362 Coma scale, best motor response, obeys commands, at arrival to emergency department; R40.2142 Coma scale, eyes open, spontaneous, at arrival to emergency department; E87.2 Acidosis; R06.00 Dyspnea, unspecified; Z79.899 Other long term (current) drug therapy; E04.1 Nontoxic single thyroid nodule
CPT/HCPCS: 36415; 70450; 71045; 72125; 80048; 80076; 81001; 82550; 83605 ×2; 83880; 84145; 84484 ×2; 85025; 85730; 87040 ×2; 93005; 96361; 96374; 99285; J2060; 70030-TC; A4217; A4663; C1758; J7030

== ENCOUNTER 2020-05-01 02:04 | Inpatient (IN) | payer MEDICARE, OTHER ==
[~2020-05-01] VITALS: Ht 170.2 cm; Wt 55.8 kg
[~2020-05-01 02:04] MED LIST changes: -ATOR10TA PO; +ATOR40TA PO; -ENAL10TA PO; +ENAL10TA75 PO; -ERGO500040 PO; -FINA5TAB11 PO; +FINA5TAB3 PO; -LINA5TAB PO; +METF-441 PO; -MUPI22OI2 NS; -SACC250C PO; +SITA100T PO; -VANC500V PO; -ZINC1CAP2 PO; -ZOLP10TA6 PO
--- NOTE | 2020-05-01 02:10 | NUR ---
Dr. Poon at bedside for MSE.
[2020-05-01] MEDS ORDERED: IV NORMAL SALINE 500 ML IV ONE ×2 (02:30→03:30)
[2020-05-01] MEDS ORDERED: METRONIDAZOLE 500 MG/NS 100 ML PIGGYBACK IV ONE (02:45)
[2020-05-01 02:49] LABS: BASOPHILS % (AUTO) 0.5 % (0.0-2.0); EOSINOPHILS # (AUTO) 0.3 K/uL (0.0-0.7); EOSINOPHILS % (AUTO) 3.9 % (0.0-7.0); HEMATOCRIT 30.2 % (36.7-47.1); HEMOGLOBIN 10.1 g/dL (12.5-16.3); LYMPHOCYTES # (AUTO) 1.6 K/uL (20.0-40.0); LYMPHOCYTES % (AUTO) 18.4 % (20.5-51.5); MEAN CORPUSCULAR HEMOGLOBIN 31.6 uug (23.8-33.4); MEAN CORPUSCULAR HGB CONC 33 g/dL (32.5-36.3); MEAN CORPUSCULAR VOLUME 94.8 fL (73.0-96.2); MONOCYTES # (AUTO) 0.5 K/uL (2.0-10.0); MONOCYTES % (AUTO) 5.7 % (0.0-11.0); NEUTROPHILS # (AUTO) 6.2 K/uL (1.8-8.9); NEUTROPHILS % (AUTO) 71.5 % (38.5-71.5); PLATELET COUNT (AUTO) 156 K/uL (152-348); RED BLOOD CELL COUNT(AUTO) 3.18 MIL/uL (4.06-5.63); WHITE BLOOD COUNT (AUTO) 8.7 K/uL (3.6-10.2)
--- NOTE | 2020-05-01 02:50 | NUR ---
Xray at bedside.
[2020-05-01 02:55] LABS: CREATININE 1.3 mg/dL (0.6-1.3); POTASSIUM 4.1 mmol/L (3.5-5.1)
--- NOTE | 2020-05-01 03:00 | NUR ---
Patient agitated, restless, pulling lines, attempting to get out of bed, MD notified.
[2020-05-01 03:09] LABS: BILIRUBIN,DIRECT 0.1 mg/dL (0.0-0.2); BILIRUBIN,TOTAL 1.1 mg/dL (0.2-1.0); TOTAL PROTEIN, SERUM 6.1 g/dL (6.4-8.2)
[2020-05-01] MEDS ORDERED: HALOPERIDOL LACTATE 5 MG/1 ML VIAL IM ONE (03:15)
--- NOTE | 2020-05-01 03:18 | NUR ---
Called [facility] to page Dr. Grady Seals.
[2020-05-01] MEDS ORDERED: HALOPERIDOL LACTATE 5 MG/1 ML VIAL ONE (03:22)
--- NOTE | 2020-05-01 03:22 | NUR ---
Dr. Poon on panel call with Dr. Grady Seals. Patient accepted for admission to [facility], diagnosis: diarrhea/dehydration.
--- NOTE | 2020-05-01 04:35 | NUR ---
Report given Trudy VALDEZ Medsurg.
--- NOTE | 2020-05-01 04:45 | NUR ---
Received patient via gurney from ED. Patient is calm and lying in bed. Right forearm IV patent and intact. Bed alarm on. bed low and locked. Safety precautions initiated and will continue to monitor
[2020-05-01 05:47] VITALS: BP 148/71
[2020-05-01] MEDS ORDERED: ACETAMINOPHEN 650 MG SUPP.RECT RC PRN (06:00)
[2020-05-01] MEDS ORDERED: MORPHINE SULFATE 2 MG/1 ML DISP.SYRIN IV PRN (06:00)
[2020-05-01] MEDS ORDERED: ONDANSETRON 4 MG/2 ML VIAL IV PRN (06:00)
[2020-05-01] MEDS: LORAZEPAM 2 MG/1 ML VIAL IV PRN ×2 (06:15→16:38)
--- NOTE | 2020-05-01 06:15 | NUR ---
Patient agitated trying to get out of bed. Attempting to kick and hit staff. Unable to redirect patient. PRN Ativan given. Will continue to monitor.
[2020-05-01] MEDS: METRONIDAZOLE 500 MG/NS 100ML 500 MG in PREMIXED 1 EACH IV SCH ×3 (07:13→21:14)
[2020-05-01] MEDS: IV D5 1/2 NS 1000 ML 1,000 ML IV PRN ×2 (07:43→21:14)
[2020-05-01] MEDS: PANTOPRAZOLE SODIUM 40 MG VIAL IV SCH (08:29)
--- NOTE | 2020-05-01 09:08 | NUR ---
PATIENT IS QUIET AT THIS TIME EVEN THOUGH HIS EYES ARE CLOSED U CAN STILL SEE HIS FEET WIGGLING INBETWEEN THE SIDE RAILS REPOSITIONED FOR COMFORT WAS SEEN AND EXAMINED BY TAZ SALAS WITH NEW ORDERS AND NOTED
--- NOTE | 2020-05-01 09:32 | NUR ---
WAS ABLE TO COLLECT URINE SPECIMEN BY PLACING A URINAL IN BETWEEN HIS LEGS WITH HIS PENIS INSIDE THE URINAL SENT TO THE LAB ORDERED.
--- NOTE | 2020-05-01 10:30 | NUR ---
TAKEN BY BED TO THE RADIOLOGY DEPT FOR CT ABDOMEN AND PELVIS ORDERED
[2020-05-01 10:53] LABS: *BILIRUBIN,URIN NEGATIVE (NEGATIVE); *BLOOD, URINE NEGATIVE (NEGATIVE); *CLARITY,URINE CLEAR (CLEAR); *COLOR,URINE YELLOW (YELLOW); *KETONES,URINE NEGATIVE (NEGATIVE); *UROBILINOGEN,URINE 0.2 E.U./dl (NORMAL); LEUKOCYTE ESTERASE ,URINE NEGATIVE (NEGATIVE); NITRITE, URINE NEGATIVE (NEGATIVE); UGLUCOSE NEGATIVE (NEGATIVE)
[2020-05-01 11:33] VITALS: BP 135/60
--- NOTE | 2020-05-01 15:04 | NUR ---
GETTING VERY AGITATED UNABLE TO REDIRECT SO PATIENT ASSISTED UP SAT HIM ON THE FEMI CHAIR MADE COMFORTABLE WILL CONTINUE TO OBSERVE HE HAS A SITTER FOR SAFETY.
--- NOTE | 2020-05-01 16:10 | NUR ---
PATIENT IS NOW VERY AGITATED AND RESTLESS UNABLE TO REDIRECT MEDICATED WITH ATIVAN ORDERED WILL CONTINUE TO OBSERVE.
[2020-05-01 16:12] VITALS: BP 130/66
[2020-05-01] MEDS: Z GUARD REMEDY PASTE 57 GM TUBE TOP SCH ×2 (17:24→20:49)
--- NOTE | 2020-05-01 18:00 | NUR ---
STILL SOMEWHAT AGITATED BUT LESS THAN BEFORE ON THE FEMI CHAIR REPOSITIONED FOR COMFORT MADE COMFORTABLE WILL CONTINUE TO OBSERVE.
[2020-05-01 19:58] VITALS: BP 126/60
--- NOTE | 2020-05-01 20:00 | NUR ---
Received patient asleep. Patient shows no signs or symptoms of distress at this time. Resting comfortably in bed. Vital signs stable. Afebrile at this time. 1:1 sitter for safety. Bed set to lowest position. Call light within reach. Side rails x2 are up. Will continue to monitor patient.
[2020-05-02] MEDS: LORAZEPAM 2 MG/1 ML VIAL IV PRN ×2 (01:44→20:36)
--- NOTE | 2020-05-02 02:25 | NUR ---
Right FA IV infiltrated. New IV 22g inserted to left FA.
[2020-05-02 05:06] VITALS: BP 150/76
[2020-05-02] MEDS: METRONIDAZOLE 500 MG/NS 100ML 500 MG in PREMIXED 1 EACH IV SCH ×3 (05:08→21:24)
[2020-05-02 06:23] LABS: BASOPHILS # (AUTO) 0.1 K/uL (0.0-8.0); EOSINOPHILS # (AUTO) 0.4 K/uL (0.0-0.7); EOSINOPHILS % (AUTO) 6.5 % (0.0-7.0); HEMATOCRIT 29.9 % (36.7-47.1); HEMOGLOBIN 10.1 g/dL (12.5-16.3); LYMPHOCYTES # (AUTO) 1.3 K/uL (20.0-40.0); MEAN CORPUSCULAR HGB CONC 34 g/dL (32.5-36.3); MEAN CORPUSCULAR VOLUME 94.5 fL (73.0-96.2); MONOCYTES # (AUTO) 0.5 K/uL (2.0-10.0); MONOCYTES % (AUTO) 7.6 % (0.0-11.0); NEUTROPHILS # (AUTO) 3.9 K/uL (1.8-8.9); NEUTROPHILS % (AUTO) 63.9 % (38.5-71.5); PLATELET COUNT (AUTO) 150 K/uL (152-348); RED BLOOD CELL COUNT(AUTO) 3.16 MIL/uL (4.06-5.63); WHITE BLOOD COUNT (AUTO) 6.1 K/uL (3.6-10.2)
--- NOTE | 2020-05-02 06:23 | NUR ---
Patient shows no signs or symptoms of distress at this time. Patient resting comfortably in bed. 1:[address] for safety[address] Patient to be endorsed to day shift nurse in stable condition.
[2020-05-02 06:48] LABS: THYROID STIMULATING HORMONE 1.303 mIU/mL (0.358-3.740)
[2020-05-02 06:54] LABS: BILIRUBIN,TOTAL 0.4 mg/dL (0.2-1.0); MAGNESIUM 1.4 mg/dL (1.8-2.4); PHOSPHOROUS 3.1 mg/dL (2.5-4.9); POTASSIUM 3.6 mmol/L (3.5-5.1)
[2020-05-02 07:30] VITALS: BP 139/74
--- NOTE | 2020-05-02 07:30 | NUR ---
Received patient sitting up in a chair and confused. No signs of respiratory distress noted, patient is saturating well on of room air. IV intact and patent on the left forearm 22 gauge running D5 1/2 NS 70 ml/hour. Patient also has a 1:1 sitter. Safety precautions in place with bed in the lowest position and locked and call light ans belongings within reach. Patient is NPO at this time. Patient is also on contact precautions for possible C-Diff. Will continue to observe and monitor.
--- NOTE | 2020-05-02 07:50 | NUR ---
Hospitalist Joaquín made aware that the patient CT showed no evidence of Cholitis. Will placed order for clear liquid diet per MD order.
[2020-05-02] MEDS: PANTOPRAZOLE SODIUM 40 MG VIAL IV SCH (08:58)
[2020-05-02] MEDS: Z GUARD REMEDY PASTE 57 GM TUBE TOP SCH ×2 (09:02→21:23)
[2020-05-02] MEDS: MAGNESIUM SULFATE/D5W 100 ML IV SCH ×4 (11:46→17:36)
[2020-05-02 12:00] VITALS: BP 122/60
[2020-05-02 16:00] VITALS: BP 121/65
--- NOTE | 2020-05-02 19:02 | NUR ---
Patient is sitting up in Mike chair, he pulled out his IV at the end of the shift. Did not finish his last bag of Magnesium completely because he pulled his IV out. Patient is stable and not in distress at this time. Will endorse to the oncoming shift.
--- NOTE | 2020-05-02 19:31 | NUR ---
Reinserted IV on left upper arm and restarted the infusion of Magnesium. Will endorse to oncoming shift.
[2020-05-02 20:00] VITALS: BP 115/61
--- NOTE | 2020-05-02 20:00 | NUR ---
Patient up in wheelchair, awake ,verbally responsive.Has 1:1 sitter, noted to be restless , trying to pulled out IV and tubing. Dr.Oleg Seals ordered restraints.Applied mittens on bilateral hands, IV line on left upper arm 20 g, patent and intact. Call light with in reach.Will continue to monitor.
[2020-05-02] MEDS: IV D5 1/2 NS 1000 ML 1,000 ML IV PRN (20:09)
[2020-05-03] MEDS ORDERED: DEXTROSE 50% 50 ML DISP.SYRIN IV PRN (02:00)
[2020-05-03] MEDS: LORAZEPAM 2 MG/1 ML VIAL IV PRN ×2 (03:57→21:35)
[2020-05-03 04:00] VITALS: BP 118/63
[2020-05-03] MEDS: METRONIDAZOLE 500 MG/NS 100ML 500 MG in PREMIXED 1 EACH IV SCH ×3 (05:02→21:17)
--- NOTE | 2020-05-03 06:27 | NUR ---
Patient in bed with mittens in place,no diarrhea at this time, no s/s of distress noted, with periods of restless and spitting out saliva towards the nurse,PRN ativan given at 2036H and 7H as ordered, Patient tolerated well, sittter at bedside for safety. Call light with in reach, continue isolation precaution .Safety measures in place.Will endorse to the oncoming nurse
[2020-05-03] MEDS: BLOOD SUGAR DIAGNOSTIC 1 EACH STRIP VI SCH ×4 (06:45→21:16)
[2020-05-03] MEDS: PANTOPRAZOLE SODIUM 40 MG VIAL IV SCH (08:45)
[2020-05-03] MEDS: Z GUARD REMEDY PASTE 57 GM TUBE TOP SCH ×2 (08:53→21:18)
[2020-05-03 11:31] VITALS: BP 143/86
[2020-05-03] MEDS: IV D5 1/2 NS 1000 ML 1,000 ML IV PRN (14:16)
[2020-05-03 14:23] VITALS: BP 142/73
[2020-05-03 15:01] LABS: BASOPHILS # (AUTO) 0.1 K/uL (0.0-8.0); EOSINOPHILS # (AUTO) 0.5 K/uL (0.0-0.7); HEMATOCRIT 29.8 % (36.7-47.1); LYMPHOCYTES # (AUTO) 1.3 K/uL (20.0-40.0); LYMPHOCYTES % (AUTO) 19.9 % (20.5-51.5); MEAN CORPUSCULAR HEMOGLOBIN 31.6 uug (23.8-33.4); MEAN CORPUSCULAR HGB CONC 34 g/dL (32.5-36.3); MEAN CORPUSCULAR VOLUME 94.1 fL (73.0-96.2); MONOCYTES # (AUTO) 0.5 K/uL (2.0-10.0); MONOCYTES % (AUTO) 7.8 % (0.0-11.0); NEUTROPHILS % (AUTO) 63.3 % (38.5-71.5); PLATELET COUNT (AUTO) 158 K/uL (152-348); RED BLOOD CELL COUNT(AUTO) 3.17 MIL/uL (4.06-5.63); WHITE BLOOD COUNT (AUTO) 6.3 K/uL (3.6-10.2)
[2020-05-03 15:21] LABS: CREATININE 0.9 mg/dL (0.6-1.3); MAGNESIUM 1.7 mg/dL (1.8-2.4); PHOSPHOROUS 3.3 mg/dL (2.5-4.9); POTASSIUM 3.8 mmol/L (3.5-5.1)
[2020-05-03] MEDS: INSULIN REGULAR, HUMAN 300 UNIT/3 ML VIAL SQ PRN (17:19)
--- NOTE | 2020-05-03 17:37 | NUR ---
Patient sitting up on the sean-care, eating dinner by himself with minimal assistance. Left upper arm peripheral IV line in place and patent. No complain of any pain or discomfort. No noted episode of diarrhea. With good urine output. Kept clean and comfortable. Needs anticipated and met. Call light and frequently used items placed within patient's reach. Safety measures maintained. 1:1 sitter at bedside.
--- NOTE | 2020-05-03 19:30 | NUR ---
Report received. Patient on contact isolation for C diff pending results. GABBI, radha. With 1:1 sitter. BALTAZAR noted. Bilateral mittens for safety. Addendum: 05/04/20 at 0226 by AUGUSTINA DOUGLASS RN Amended: Links added. Addendum: 05/04/20 at 0228 by AUGUSTINA DOUGLASS RN Amended: Links added.
[2020-05-03 20:00] VITALS: BP 128/70
--- NOTE | 2020-05-03 21:35 | NUR ---
With increasing restlessness; talking in language other than Filipino. Atdulce IV given. Addendum: 05/04/20 at 0228 by AUGUSTINA DOUGLASS RN Amended: Links added.
[2020-05-04 04:00] VITALS: BP 141/78
[2020-05-04] MEDS: IV D5 1/2 NS 1000 ML 1,000 ML IV PRN ×2 (04:20→18:20)
--- NOTE | 2020-05-04 04:51 | NUR ---
Am care done. Skin care provided. Patient sleeping, no acute distress noted. Addendum: 05/04/20 at 0451 by AUGUSTINA DOUGLASS RN Amended: Links added.
[2020-05-04] MEDS: METRONIDAZOLE 500 MG/NS 100ML 500 MG in PREMIXED 1 EACH IV SCH ×3 (05:18→21:06)
[2020-05-04] MEDS: BLOOD SUGAR DIAGNOSTIC 1 EACH STRIP VI SCH ×4 (06:30→20:37)
[2020-05-04 08:00] VITALS: BP 132/73
--- NOTE | 2020-05-04 08:00 | NUR ---
Received pt in bed awake, Cook Islander speaking, on 1:1 sitter. On RA with no SOB or distress noted at this time. IV on GABRIELA 20g running D5 1/2 NS @ 70cc/hr. Bilateral mittens since pt pulls out IV. Bed locked in lowest position with siderails 2x up.
[2020-05-04] MEDS: Z GUARD REMEDY PASTE 57 GM TUBE TOP SCH ×2 (10:20→20:42)
[2020-05-04] MEDS: PANTOPRAZOLE SODIUM 40 MG VIAL IV SCH (10:20)
[2020-05-04 12:00] VITALS: BP 167/56
[2020-05-04] MEDS: INSULIN REGULAR, HUMAN 300 UNIT/3 ML VIAL SQ PRN ×2 (12:41→20:42)
[2020-05-04 16:00] VITALS: BP 141/75
[2020-05-04] MEDS: LORAZEPAM 2 MG/1 ML VIAL IV PRN (18:03)
--- NOTE | 2020-05-04 18:03 | NUR ---
Patient getting agitated and starting to be combative. Trying to get out of bed. On 1:1 sitter. Ativan PRN given as ordered
--- NOTE | 2020-05-04 19:35 | NUR ---
Received patient lying in bed. 1:1 sitter at bedside. Patient is confused and restless. Bilateral safety mittens on for safety. No signs of acute distress noted at this time. Left upper arm IV patent and intact. Bed low and locked. Safety measures intact and will continue to monitor.
[2020-05-04 20:54] VITALS: BP 144/86
[2020-05-05] MEDS: LORAZEPAM 2 MG/1 ML VIAL IV PRN ×2 (00:02→19:55)
[2020-05-05] MEDS: METRONIDAZOLE 500 MG/NS 100ML 500 MG in PREMIXED 1 EACH IV SCH (05:05)
[2020-05-05 05:35] VITALS: BP 152/74
[2020-05-05] MEDS: BLOOD SUGAR DIAGNOSTIC 1 EACH STRIP VI SCH ×4 (06:39→22:08)
[2020-05-05] MEDS: PANTOPRAZOLE SODIUM 40 MG VIAL IV SCH (08:08)
[2020-05-05] MEDS: Z GUARD REMEDY PASTE 57 GM TUBE TOP SCH ×2 (08:09→22:09)
[2020-05-05] MEDS ORDERED: VANC500V PO (10:11)
[2020-05-05] MEDS ORDERED: VANC125C5 PO (10:24)
[2020-05-05 11:18] VITALS: BP 117/71
[2020-05-05] MEDS: VANCOMYCIN FOR PO/GT/NG USE PO SCH ×3 (12:52→23:47)
[2020-05-05 16:00] VITALS: BP 112/61
[2020-05-05] MEDS: IV D5 1/2 NS 1000 ML 1,000 ML IV PRN (19:00)
--- NOTE | 2020-05-05 19:20 | NUR ---
Patient alert but with confusion, no s/s of sob, no s/s of pain at this time. Patient on contact isolation due positive cdiff, with report diarrhea at this time. Patient has 1;1 sitter for safety, patient climbs out of bed, and restless in bed, risk for fall and injury, patient also has multiple episode of pulling out iv tubes, continue to reorient patient but not effective. Patient has hand mittens check for placement, and circulations, cont to monitor.
--- NOTE | 2020-05-05 19:55 | NUR ---
Patient agitated, combative to staff when giving adl's. redirect patient but not effective, kept clean and dry, offer food but not effective. Patient was given ativan 0.5mg iv for anxiety, agitation, cont to monitor.
[2020-05-05 20:00] VITALS: BP 154/74
[2020-05-05] MEDS: INSULIN REGULAR, HUMAN 300 UNIT/3 ML VIAL SQ PRN (22:10)
--- NOTE | 2020-05-06 01:36 | NUR ---
Patient still restless and hostile behavior, redict patient but not effective, kept clean and dry. Patient was given morphine for pain and discomfort with effective results, patient went to sleep, patient has soft form BM at this time. Patient remain on contact isolation, cont to monitor.
[2020-05-06 04:00] VITALS: BP 136/64
[2020-05-06] MEDS: BLOOD SUGAR DIAGNOSTIC 1 EACH STRIP VI SCH ×4 (05:26→20:11)
[2020-05-06] MEDS: VANCOMYCIN FOR PO/GT/NG USE PO SCH ×3 (05:27→17:24)
--- NOTE | 2020-05-06 06:14 | NUR ---
Patient asleep but easily arousable, patient calm cooperative with care at this time. Patient remains on contact isolation due to cdiff, cont on 1;1 sitter for safety, patient still wants to pull iv lines, hand mittens in place, check for placement and circulation, cont to monitor..
[2020-05-06] MEDS: PANTOPRAZOLE SODIUM 40 MG VIAL IV SCH (08:01)
[2020-05-06] MEDS: Z GUARD REMEDY PASTE 57 GM TUBE TOP SCH ×2 (08:27→20:10)
[2020-05-06] MEDS: INSULIN REGULAR, HUMAN 300 UNIT/3 ML VIAL SQ PRN ×2 (10:48→16:08)
[2020-05-06 11:00] VITALS: BP 141/67
[2020-05-06] MEDS: LORAZEPAM 2 MG/1 ML VIAL IV PRN (13:17)
--- NOTE | 2020-05-06 20:30 | NUR ---
Patient discharged to [facility] via ambulance in stable condition. all needs attended.
[2020-05-07] MEDS ORDERED: PANTOPRAZOLE SODIUM 40 MG TABLET.DR PO SCH (07:00)
== END 2020-05-06 20:35 | DRG 871 ==
LOC: ER 02:06 → MEDSURG3 04:43 → TELE3 08:10 → MEDSURG3 09:50
PROVIDERS: ADMIT Nurse Practitioner Acute Care; ATTEND Nurse Practitioner Acute Care
DX: A41.9 Sepsis, unspecified organism (principal); N17.0 Acute kidney failure with tubular necrosis; E44.0 Moderate protein-calorie malnutrition; E87.2 Acidosis; I50.32 Chronic diastolic (congestive) heart failure; I13.0 Hypertensive heart and chronic kidney disease with heart failure and stage 1 through stage 4 chronic kidney disease, or unspecified chronic kidney disease; G93.40 Encephalopathy, unspecified; Z68.1 Body mass index [BMI] 19.9 or less, adult; A04.71 Enterocolitis due to Clostridium difficile, recurrent; E86.0 Dehydration; E87.8 Other disorders of electrolyte and fluid balance, not elsewhere classified; G30.9 Alzheimer's disease, unspecified; F02.80 Dementia in other diseases classified elsewhere, unspecified severity, without behavioral disturbance, psychotic disturbance, mood disturbance, and anxiety; N18.9 Chronic kidney disease, unspecified; Z79.84 Long term (current) use of oral hypoglycemic drugs; E11.22 Type 2 diabetes mellitus with diabetic chronic kidney disease; E88.09 Other disorders of plasma-protein metabolism, not elsewhere classified; Z87.440 Personal history of urinary (tract) infections; E11.319 Type 2 diabetes mellitus with unspecified diabetic retinopathy without macular edema; D63.1 Anemia in chronic kidney disease; N40.0 Benign prostatic hyperplasia without lower urinary tract symptoms
CPT/HCPCS: 36415; 70030-TC; 71045; 83605; 83735; 84100; 84443; 85025; 85730; 87040; 87086; A4663; C1758; C9113; G0378; J1630; J1815; J2060; J2270; J3370; J3475; J3490; J7040